=== PATIENT | female | born 1955 | race Caucasian/White ===

== ENCOUNTER → 2021-09-19 14:35 | Outpatient (BNVA) | payer MEDICARE, SELFPAY | PROVIDERS: PCP Internal Medicine; Referring Provider Internal Medicine; Visit Provider Surgery | DX: K62.89 Other specified diseases of anus and rectum (principal) | CPT/HCPCS: 99202 ==

== ENCOUNTER 2022-02-24 14:03 | Outpatient (REF) | payer MEDICARE, SELFPAY ==
--- NOTE | ~2022-02-24 | XR_ITS ---
EXAMINATION: XR HAND, RIGHT XR HAND, LEFT CLINICAL INFORMATION: Bilateral hand pain. COMPARISON: None TECHNIQUE: Each hand is imaged in 3 views. There are a total of 6 views. FINDINGS: Right: There is generalized osteopenia. No focal periarticular demineralization and no destructive process, fracture, dislocation. The ulnar variance is neutral. There is a corticated ossicle adjacent to short ulnar styloid, likely chronic secondary ossification center. Small cyst noted in distal pole carpal navicular. Wrist shows no focal joint narrowing or erosive change or chondrocalcinosis. There is mild narrowing of the MCP joints with some variable minor marginal osteophytes. No erosive change or chondrocalcinosis. There is mild narrowing PIP joints greatest fourth finger. There is spurring medial side fifth finger PIP joint. There are mild degenerative changes DIP joints. No erosions. Left: There is generalized osteopenia. No focal periarticular demineralization and no destructive process, fracture, dislocation. The ulnar variance is neutral. The carpus shows no focal joint narrowing or erosive change or chondrocalcinosis. There is mild narrowing of the first MCP joint. No erosion. There is mild narrowing fourth and fifth finger PIP joints and mild narrowing of the DIP joints. No erosive changes. XR/XR hand RT min 3V IMPRESSION: Right: -Mild narrowing MCP and PIP joints. Mild degenerative changes DIP joints. -No erosions. Left: -Mild narrowing first MCP joint. Mild narrowing fourth and fifth finger PIP joints and the DIP joints. -No erosive changes.
--- NOTE | ~2022-02-24 | XR_ITS ---
EXAMINATION: XR HAND, RIGHT XR HAND, LEFT CLINICAL INFORMATION: Bilateral hand pain. COMPARISON: None TECHNIQUE: Each hand is imaged in 3 views. There are a total of 6 views. FINDINGS: Right: There is generalized osteopenia. No focal periarticular demineralization and no destructive process, fracture, dislocation. The ulnar variance is neutral. There is a corticated ossicle adjacent to short ulnar styloid, likely chronic secondary ossification center. Small cyst noted in distal pole carpal navicular. Wrist shows no focal joint narrowing or erosive change or chondrocalcinosis. There is mild narrowing of the MCP joints with some variable minor marginal osteophytes. No erosive change or chondrocalcinosis. There is mild narrowing PIP joints greatest fourth finger. There is spurring medial side fifth finger PIP joint. There are mild degenerative changes DIP joints. No erosions. Left: There is generalized osteopenia. No focal periarticular demineralization and no destructive process, fracture, dislocation. The ulnar variance is neutral. The carpus shows no focal joint narrowing or erosive change or chondrocalcinosis. There is mild narrowing of the first MCP joint. No erosion. There is mild narrowing fourth and fifth finger PIP joints and mild narrowing of the DIP joints. No erosive changes. XR/XR hand LT min 3V IMPRESSION: Right: -Mild narrowing MCP and PIP joints. Mild degenerative changes DIP joints. -No erosions. Left: -Mild narrowing first MCP joint. Mild narrowing fourth and fifth finger PIP joints and the DIP joints. -No erosive changes.
--- NOTE | ~2022-02-24 | XR_ITS ---
EXAMINATION: XR LUMBOSACRAL SPINE CLINICAL INFORMATION: M54.50 - Low back pain, unspecified COMPARISON: CT abdomen and pelvis 02/08/2008 TECHNIQUE: Three views of the lumbosacral spine. FINDINGS: There is normal lumbar segmentation with 5 nonrib-bearing lumbar vertebrae of normal height. There is mild accentuation lumbar lordosis similar to lateral topogram 2007. There is no lumbar vertebral compression, spondylolisthesis, destructive process. There are degenerative disc changes greatest at L5-S1 with disc narrowing, vacuum disc, endplate sclerosis, and vertebral spurring. There is mild disc narrowing L4-L5 and L1-L2. Facet degeneration is suggested at lumbosacral junction. The SI joints and visualized sacrum are unremarkable. Bowel gas unremarkable. There are surgical clips right upper quadrant abdomen likely related to cholecystectomy. XR/XR lumbar spine 2-3V IMPRESSION: 1. Degenerative disc changes greatest at L5-S1. 2. No vertebral compression, spondylolisthesis, destructive process.
--- NOTE | ~2022-02-24 | XR_ITS ---
EXAMINATION: XR HIP, LEFT CLINICAL INFORMATION: M25.552 - Pain in left hip COMPARISON: None TECHNIQUE: Two views of the left hip. FINDINGS: There are prominent osteoarthritic changes left hip with joint narrowing greater superior hip joint, subchondral sclerosis, spurring, and subchondral cyst/geodes in the superior femoral head. No erosive change. Some mild buttressing is present medial side femoral neck. There is mild spurring greater trochanter. The visualized left SI joint and the pubis are unremarkable.. XR/XR hip LT min 2V IMPRESSION: Prominent osteoarthritis left hip.
[2022-02-24 15:12] LABS: MANUAL DIFF FLAG NO
[2022-02-24 15:37] LABS: Basophils Absolute Auto 0.1 X10*3/uL (0.0-0.2); Basophils Percent Auto 0.9 % (0-2); Eosinophils Absolute Auto 0.3 X10*3/uL (0.0-0.4); Eosinophils Percent Auto 4.5 % (0-4); Hematocrit 39.7 % (37.0-47.0); Hemoglobin 13.1 g/dl (12.0-16.0); Imm Gran Abs Auto 0.01 X10*3/uL (0.00-0.03); Imm Gran Pct Auto 0.2 % (0.0-0.4); Mean Corpuscular Hemoglobin 30.8 pg (27.0-33.0); Mean Corpuscular Volume 93.2 fL (80.0-98.0); Mean Platelet Volume 9.5 fL (9.4-12.3); Monocytes Absolute Auto 0.4 X10*3/uL (0.1-1.2); Monocytes Percent Auto 6.4 % (2-11); Platelet Count 293 X10*3/uL (160-400); Red Blood Count 4.26 X10*6/uL (4.20-5.50); Red Cell Distribution Width 13.2 % (11.0-16.0); White Blood Count 5.6 X10*3/uL (4.8-10.8)
[2022-02-24 16:02] LABS: Alanine Aminotransferase 39 U/L (0-31); Albumin Level 4.5 g/dL (3.5-5.0); Alkaline Phosphatase 124 U/L (39-117); Anion Gap 14 (12-20); Aspartate Amino Transferase 31 U/L (5-31); Bilirubin Total 0.6 mg/dL (0.0-1.0); Blood Urea Nitrogen 8 mg/dL (9-16); Calcium 10.1 mg/dL (8.4-10.2); Carbon Dioxide 28 mmol/L (22-29); Chloride 106 mmol/L (96-108); Cholesterol 223 mg/dL; Estimated Glomerular Filt Rate > 60; Glucose Fasting 115 mg/dL (60-99); HDL Cholesterol 86 mg/dL; LDL Cholesterol Calculated 118 mg/dl; Potassium 4.6 mmol/L (3.3-5.1); Sodium 143 mmol/L (135-145); Total Protein 6.9 g/dL (6.5-8.0); Triglycerides 96 mg/dL
== END 2022-02-24 14:04 | disposition home or self-care (01) ==
LOC: HO.XRAY 14:03
PROVIDERS: PCP Internal Medicine; Visit Provider Internal Medicine
DX: Z00.00 Encounter for general adult medical examination without abnormal findings (principal); M25.552 Pain in left hip; M54.50 Low back pain, unspecified; D64.9 Anemia, unspecified
CPT/HCPCS: 36415; 72100; 73130; 73502; 80053; 80061; 85025

== ENCOUNTER 2022-12-25 13:35 | Outpatient (AMB) | payer MEDICARE, SELFPAY ==
--- NOTE | 2022-12-25 13:37 | A.OFFPC_ITS ---
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 Required: No Accompanied by: Self / Same As Patient Allergies codeine [Codeine] Allergy (Mild, Verified 12/25/22 13:54) VOMITING Medication List - Last Reconciled 12/25/22 by Suellen Loomis MD No Known Home Meds Tobacco use date assessed: 12/25/22 Fall risk assessment: No Falls in past year Last assessed Fall Risk: 12/25/22 Dental Screening Dental Screen Date: 12/25/22 Did you have a dental visit in the last 12 months?: Yes Did you have a dental problem in the last 6 months where you did not have access to dental care?: No Was dental information given to patient?: Patient has dentist HPI HPI Comments History of Present Illness Details This is a 67-year-old female that comes for her physical exam. Mammogram was done over 2 years ago. Colonoscopy was done less than 10 years ago was normal. No chest pain or shortness of breath. Complains of chronic severe left hip pain and walks with a walker. Declines ortho referral and declines physical therapy at the moment due to personal issues. Will consider ortho referral on physical therapy in the near future. [facility] Medical History Left hand pain Left hip pain Lumbar pain Osteoarthritis involving multiple joints on both sides of body Overweight Physical exam Rectal lump Right hand pain Surgical History History of cholecystectomy History of tonsillectomy Family History (Updated 12/25/22 @ 14:00 by Suellen Loomis MD) Mother Breast cancer Glaucoma Parkinson disease Father Heart valve problem Parkinson disease Family/Other Substance use disorder Brother Substance use disorder Cirrhosis Social History Housing: House Alcohol intake: never Patient Tobacco Use Status: Never used Tobacco e-Cigarette/Vaping Use: Never Used Second Hand Smoke Exposure: No Substance Use Type: Marijuana service: No Current occupational status: retired Cognitive needs: No Hearing needs: No Vision needs: Yes Questionnaire PHQ-9 Over the last 2 weeks, how often have you been bothered by any of the following problems? 1. Little interest or pleasure in doing things: not at all 2. Feeling down, depressed, or hopeless: not at all 3. Trouble falling or staying asleep, or sleeping too much: not at all 4. Feeling tired or having little energy: not at all 5. Poor appetite or overeating: not at all 6. Feeling bad about yourself - or that you are a failure or have let yourself or your family down: not at all 7. Trouble concentrating on things, such as reading the newspaper or watching television: not at all 8. Moving or speaking so slowly that other people could have noticed. Or the opposite - being so fidgety or restless that you have been moving around a lot more than usual: not at all 9. Thoughts that you would be better off or of hurting yourself in some way: not at all Total score: 0 Depression Screening Interpretation: Negative 18384 - PHQ-9 Billing: Yes Source: Developed by Drs. Jer Slaughter, Melissa Mueller, Ash Nelson and colleagues, with an educational penny from [employer]. Thrive Questionnaire Date Thrive assessed: 12/25/22 I am a: Patient What is your living situation today?: I have a steady place to live Within the past 12 months, did the food you bought not last and you didn't have the money to get more?: Never true Within the past 12 months, did you worry whether your food would run out before you got money to buy more?: Never true Do you have trouble paying for medicines?: No Do you have trouble getting transportation to medical appointments?: No Do you have trouble paying your heating and electricity bill?: No Do you have trouble taking care of your child, family member or friend?: No Do you have trouble with day-to-day activities such as bathing, preparing meals, shopping, managing finances, etc.?: No Are you currently unemployed and looking for a job?: No Are you interested in more education?: No Please select the resources that you would like help with: None Currently or been in a relationship where the following occur: no concerns reported AUDIT C Alcohol Use Questionnaire (AUDIT-C) 1. How often do you have a drink containing alcohol?: Never Total Score: 0 Score Reviewed/Action Taken: No ABEL-7 AMB Questionnaire ABEL-7 Date ABEL - 7 assessed: 12/25/22 Feeling nervous, anxious, or on edge: 0 = Not at all Not being able to stop or control worryin = Not at all Worrying too much about different things: 0 = Not at all Trouble relaxin = Not at all Being so restless that it is hard to sit still: 0 = Not at all Becoming easily annoyed or irritable: 0 = Not at all Feeling afraid as if something awful might happen: 0 = Not at all Total ABEL-7 score (0-4 normal; 5-9 mild; 10-14 moderate; 15-21 severe): 0 Source: Developed by Drs. Jer Slaughter, Melissa Mueller, Ash Nelson and colleagues, with an educational penny from [employer]. ABEL-7 Assessment Billing ABEL-7 Assessment Tool: ABEL-7 Assessment 14191 Review of Systems Const All systems reviewed & are unremarkable except as noted in HPI and below Eyes Reports no additional complaints, Denies change in vision and Denies other visual disturbances Card Denies chest pain at rest, Denies chest pain with activity, Denies edema, Denies irregular heart rhythm, Denies claudication, Denies dyspnea, Denies dyspnea on exertion, Denies orthopnea, Denies paroxysmal nocturnal dyspnea and Denies slow heart rate Resp Denies cough, Denies dyspnea and Denies dyspnea on exertion GI Denies abdominal pain, Denies change in bowel habits, Denies excessive flatus, D enies nausea and Denies vomiting Denies urinary incontinence, Denies urinary hesitancy and Denies urinary urgency Musc Denies abnormal gait, Denies atrophy, Denies deformity and Denies limited range of motion Skin/Breast Denies bleeding lesions, Denies changing lesions and Denies rash Neuro Denies abnormal gait, Denies confusion and Denies lack of coordination Psych Denies confusion Physical exam (Primary Care) Vital Signs: Last Vital Signs BP 138/88 12/25/22 14:34 BMI result Body Mass Index 27.2 Tobacco/Smoking Status: Tobacco use Status Tobacco use date assessed 12/25/22 12/25/22 13:43 Patient Tobacco Use Status Never used Tobacco 12/25/22 13:40 e-Cigarette/Vaping Use Never Used 12/25/22 13:40 PHQ-9: PHQ-9 Score PHQ-9: Total score 0 12/25/22 14:36 Depression Screening Interpretation: Negative Thrive Assessment: Date of Thrive Assessment Date Thrive assessed 12/25/22 12/25/22 13:40 Currently or been in a relationship where the following occur: no concerns reported Const General: No confusion Orientation/consciousness: patient oriented x3 and No confusion Limitations: ambulation with cane Eyes General: appearance normal, both eyes and all related structures Eyelids: Yes eyelids normal Conjunctivae: conjunctivae normal Neck Neck: Yes normal visual inspection and Yes supple Resp Effort & Inspection: normal respiratory effort Auscultation: clear to auscultation bilaterally Cardio Jugular venous distension: no JVD Rate: regular rate Rhythm: regular rhythm Heart sounds: S1 normal heart sound present and S2 normal heart sound present GI Inspection: Yes normal to inspection Palpation (GI): Soft to palpation and nontender Auscultation: normal bowel sounds Skin General skin exam: no rashes or lesions noted Neuro General: patient oriented x3, no focal motor deficits and No confusion Extrem General: Yes full ROM Psych Appearance: grossly normal Assessment and Plan Assessment & Plan (1) Physical exam: Code(s): Z00.00 - Encounter for general adult medical examination without abnormal findings Plan: Repeat in a year Orders: Orders MM screening mammo BI Today Z12.31 - Encounter for screening mammogram for malignant neoplasm of breast Comprehensive [place]. Panel Fast Today Z00.00 - Encounter for general adult medical examination without abnormal findings Lipid Panel Today E78.5 - Hyperlipidemia, unspecified, Z00.00 - Encounter for general adult medical examination without abnormal findings Coding Level of Care Code Est Pt Prev Care >65y(83160) Diagnoses Physical exam Z00.00 Additional Codes ABEL-7 Assessment Billing - ABEL-7 Assessment Tool: ABEL-7 Assessment 81180 ([id number]) Time Spent (min) 31
[2022-12-25 13:42] VITALS: BP 140/92; BMI 27.2
[2022-12-25 14:34] VITALS: BP 138/88
== END 2022-12-25 14:48 | disposition home or self-care (01) ==
PROVIDERS: Visit Provider Internal Medicine
DX: Z00.00 Encounter for general adult medical examination without abnormal findings (principal)
CPT/HCPCS: 99397

== ENCOUNTER → 2023-11-27 13:21 | Outpatient (REF) | payer MEDICARE, SELFPAY ==
--- NOTE | 2023-11-27 13:33 | ECG_ITS ---
Test Reason : PREOP Blood Pressure : / mmHG Vent. Rate : 093 BPM Atrial Rate : 093 BPM P-R Int : 208 ms QRS Dur : 072 ms QT Int : 360 ms P-R-T Axes : 062 040 040 degrees QTc Int : 447 ms Artifact in tracing Sinus rhythm with occasional Premature ventricular complexes Possible Inferior infarct , age undetermined Abnormal ECG When compared with ECG of 08-FEB-2008 13:59, Premature ventricular complexes are now Present Borderline criteria for Inferior infarct are now Present Referred By: Suellen Loomis Electronically Signed By:SALO PASTOR
[2023-11-27 13:57] LABS: MANUAL DIFF FLAG NO
[2023-11-27 14:24] LABS: Basophils Absolute Auto 0.1 X10*3/uL (0.0-0.2); Basophils Percent Auto 0.8 % (0-2); Eosinophils Absolute Auto 0.2 X10*3/uL (0.0-0.4); Eosinophils Percent Auto 3.2 % (0-4); Hematocrit 40.7 % (37.0-47.0); Hemoglobin 13.8 g/dl (12.0-16.0); Imm Gran Abs Auto 0.02 X10*3/uL (0.00-0.03); Imm Gran Pct Auto 0.3 % (0.0-0.4); Lymphocytes Absolute Auto 1.8 X10*3/uL (1.2-4.9); Lymphocytes Percent Auto 25.5 % (20-40); Mean Corpuscular HGB Conc 33.9 g/dl (31.0-35.0); Mean Corpuscular Hemoglobin 31.4 pg (27.0-33.0); Mean Corpuscular Volume 92.5 fL (80.0-98.0); Mean Platelet Volume 9.5 fL (9.4-12.3); Monocytes Absolute Auto 0.5 X10*3/uL (0.1-1.2); Monocytes Percent Auto 7.4 % (2-11); Neutrophils Absolute Auto 4.5 x10*3/uL (2.0-8.3); Neutrophils Percent Auto 62.8 % (45-73); Platelet Count 267 X10*3/uL (160-400); Red Cell Distribution Width 13.3 % (11.0-16.0); White Blood Count 7.2 X10*3/uL (4.8-10.8)
[2023-11-27 14:47] LABS: Alanine Aminotransferase 18 U/L (0-31); Albumin Level 4.5 g/dL (3.5-5.0); Alkaline Phosphatase 98 U/L (39-117); Anion Gap 14 (12-20); Aspartate Amino Transferase 20 U/L (5-31); Bilirubin Total 0.6 mg/dL (0.0-1.0); Blood Urea Nitrogen 14 mg/dL (9-16); Calcium 10.4 mg/dL (8.4-10.2); Carbon Dioxide 24 mmol/L (22-29); Chloride 109 mmol/L (96-108); Cholesterol 224 mg/dL (<200); Estimated Glomerular Filt Rate 54; Glucose Fasting 121 mg/dL (60-99); HDL Cholesterol 87 mg/dL (>40); LDL Cholesterol Calculated 124 mg/dL (<100); Potassium 3.9 mmol/L (3.3-5.1); Sodium 143 mmol/L (135-145); Total Protein 7.2 g/dL (6.5-8.0); Triglycerides 67 mg/dL (<150)
== END ==
LOC: HO.CARD 13:21
PROVIDERS: PCP Internal Medicine; Visit Provider Internal Medicine
DX: Z01.818 Encounter for other preprocedural examination (principal); K62.89 Other specified diseases of anus and rectum; E78.5 Hyperlipidemia, unspecified
CPT/HCPCS: 36415; 80053; 80061; 85025; 93005

== ENCOUNTER → 2023-11-27 13:33 | Outpatient (BNV) | payer MEDICARE, SELFPAY | PROVIDERS: PCP Internal Medicine; Visit Provider Internal Medicine | DX: R94.31 Abnormal electrocardiogram [ECG] [EKG] (principal) | CPT/HCPCS: 93010 ==

== ENCOUNTER 2023-12-02 10:07 | Outpatient (AMB) | payer MEDICARE, SELFPAY ==
--- NOTE | 2023-12-02 10:17 | MHC.PC.OV ---
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 Roving Or Yarn Required: No Accompanied by: Self / Same As Patient Allergies codeine [Codeine] Allergy (Mild, Verified 12/02/23 10:30) VOMITING Medication List - Last Reconciled 12/02/23 by Suellen Loomis MD aspirin 81 mg PO DAILY calcium carbonate 500 mg PO BID multivitamin 1 tab PO DAILY Tobacco use date assessed: 12/02/23 Fall risk assessment: No Falls in past year Last assessed Fall Risk: 12/02/23 Dental Screening Dental Screen Date: 12/02/23 Did you have a dental visit in the last 12 months?: No Did you have a dental problem in the last 6 months where you did not have access to dental care?: No Was dental information given to patient?: Patient has dentist HPI HPI Comments History of Present Illness Details This is a 68-year-old female with left hip pain that comes today for preop evaluation for left hip arthroplasty scheduled for 12/22/2023. She denies any chest pain shortness on breath. Has elevated cholesterol and dietary changes were advised. Has elevated blood glucose and denies any polyuria, polydipsia or unintentional weight loss. Her A1c today 6%. Had an EKG in the hospital 11/25/2023 showing possible inferior infarct compare to EKG done 2007. I repeated the EKG in office and it shows prominent Q-waves in II, III and avF showing again a possible inferior infarct. I will refer her to Cardiology for this matter. She walks with a cane for gait stability. Clearance will be done by Cardiology. [facility] Medical History (Updated 12/02/23 @ 11:41 by Suellen Loomis MD) Rectal lump Right hand pain Left hand pain Osteoarthritis involving multiple joints on both sides of body Lumbar pain Left hip pain Physical exam Overweight Surgical History History of tonsillectomy History of cholecystectomy Family History (Updated 12/02/23 @ 10:39 by Suellen Loomis MD) Mother Breast cancer Glaucoma Parkinson disease Heart failure Father Heart valve problem Parkinson disease Prostate cancer Family/Other Substance use disorder Brother Substance use disorder Cirrhosis Social History Housing: House Alcohol intake: never Patient Tobacco Use Status: Never used Tobacco e-Cigarette/Vaping Use: Never Used Second Hand Smoke Exposure: No Substance Use Type: Marijuana service: No Current occupational status: retired Cognitive needs: No Hearing needs: No Vision needs: Yes Questionnaire PHQ-9 Over the last 2 weeks, how often have you been bothered by any of the following problems? 1. Little interest or pleasure in doing things: not at all 2. Feeling down, depressed, or hopeless: not at all 3. Trouble falling or staying asleep, or sleeping too much: not at all 4. Feeling tired or having little energy: not at all 5. Poor appetite or overeating: not at all 6. Feeling bad about yourself - or that you are a failure or have let yourself or your family down: not at all 7. Trouble concentrating on things, such as reading the newspaper or watching television: not at all 8. Moving or speaking so slowly that other people could have noticed. Or the opposite - being so fidgety or restless that you have been moving around a lot more than usual: not at all 9. Thoughts that you would be better off or of hurting yourself in some way: not at all Total score: 0 Depression Screening Interpretation: Negative Depression Screening Done: Yes 42286 - PHQ-9 Billing: Yes Source: Developed by Drs. Jer Slaughter, Melissa Mueller, Ash Nelson and colleagues, with an educational penny from [employer]. Thrive Questionnaire Date Thrive assessed: 12/02/23 I am a: Patient What is your living situation today?: I have a steady place to live Within the past 12 months, did the food you bought not last and you didn't have the money to get more?: Never true Within the past 12 months, did you worry whether your food would run out before you got money to buy more?: Never true Do you have trouble paying for medicines?: No Do you have trouble getting transportation to medical appointments?: No Do you have trouble paying your heating and electricity bill?: No Do you have trouble taking care of your child, family member or friend?: No Do you have trouble with day-to-day activities such as bathing, preparing meals, shopping, managing finances, etc.?: No Are you currently unemployed and looking for a job?: No Are you interested in more education?: No Please select the resources that you would like help with: None Currently or been in a relationship where the following occur: No concerns reported THRIVE Score: 0 AUDIT C Alcohol Use Questionnaire (AUDIT-C) 1. How often do you have a drink containing alcohol?: Never Total Score: 0 Score Reviewed/Action Taken: No ABEL-7 AMB Questionnaire ABEL-7 Date ABEL - 7 assessed: 12/02/23 Feeling nervous, anxious, or on edge: 0 = Not at all Not being able to stop or control worryin = Not at all Worrying too much about different things: 0 = Not at all Trouble relaxin = Not at all Being so restless that it is hard to sit still: 0 = Not at all Becoming easily annoyed or irritable: 0 = Not at all Feeling afraid as if something awful might happen: 0 = Not at all Total ABEL-7 score (0-4 normal; 5-9 mild; 10-14 moderate; 15-21 severe): 0 Source: Developed by Drs. Jer Slaughter, Melissa Mueller, Ash Nelson and colleagues, with an educational penny from [employer]. ABEL-7 Assessment Billing ABEL-7 Assessment Tool: ABEL-7 Assessment 65234 Review of Systems Const All systems reviewed & are unremarkable except as noted in HPI and below Card Denies chest pain at rest, Denies chest pain with activity, Denies edema, Denies irregular heart rhythm, Denies claudication, Denies dyspnea, Denies dyspnea on exertion, Denies orthopnea, Denies paroxysmal nocturnal dyspnea and Denies slow heart rate Resp Denies cough, Denies dyspnea and Denies dyspnea on exertion GI Denies abdominal pain, Denies change in bowel habits, Denies excessive flatus, Denies nausea and Denies vomiting Musc Reports arthralgias Neuro Denies behavioral changes and Denies lack of coordination Psych Denies behavioral changes Physical exam (Primary Care) Vital Signs: Last Vital Signs Pulse 90 12/02/23 10:19 BP 128/80 12/02/23 10:19 Pulse Ox 98 12/02/23 10:19 Oxygen Delivery Method Room Air 12/02/23 10:19 BMI result Body Mass Index 27.2 Tobacco/Smoking Status: Tobacco use Status Tobacco use date assessed 12/02/23 12/02/23 10:23 Patient Tobacco Use Status Never used Tobacco 12/02/23 10:18 e-Cigarette/Vaping Use Never Used 12/02/23 10:18 PHQ-9: PHQ-9 Score PHQ-9: Total score 0 12/02/23 10:35 Depression Screening Interpretation: Negative Thrive Assessment: Date of Thrive Assessment Date Thrive assessed 12/02/23 12/02/23 10:24 Currently or been in a relationship where the following occur: No concerns reported Const General: cooperative Limitations: ambulation with cane Resp Effort & Inspection: normal respiratory effort Auscultation: clear to auscultation bilaterally Cardio Jugular venous distension: no JVD Rate: regular rate Rhythm: regular rhythm Heart sounds: S1 normal heart sound present and S2 normal heart sound present Extrem General: Yes full ROM Office Procedures EKG Details: NSR. Deep Q waves in II, III and avF with possible inferior infarct. [id number], Complete Results AMB Hemoglobin A1c AMB Hemoglobin A1c 6.0 % Last Edit by MEDHAT Bell on 12/02/23 10:40 Results Reviewed Results Reviewed: Laboratory Last Values Hgb A1c (Clinic) 6.0 % (4.0-6.0) 12/02/23 10:35 Assessment and Plan Assessment & Plan (1) Pre-op evaluation: Code(s): Z01.818 - Encounter for other preprocedural examination Plan: Medical clearance will be done by Cardiology due to her abnormal EKG. (2) Abnormal EKG: Code(s): R94.31 - Abnormal electrocardiogram [ECG] [EKG] Plan: Referred to cardiology. Orders: Orders AMB Hemoglobin A1c Today R73.02 - Impaired glucose tolerance (oral) Coding Level of Care Code Est Pt Level 3 (59944) Complex EM visit Add On G2211 Diagnoses Pre-op evaluation Z01.818 Abnormal EKG R94.31 CPT Codes EKG - CPT: 88914-[id number], Complete ([id number]) Additional Codes ABEL-7 Assessment Billing - ABEL-7 Assessment Tool: ABEL-7 Assessment 80639 ([id number]) Time Spent (min) 22
[2023-12-02 10:19] VITALS: BP 128/80; PULSE 90; O2SAT 98; BMI 27.2
== END 2023-12-02 11:12 | disposition home or self-care (01) ==
PROVIDERS: PCP Internal Medicine; Visit Provider Internal Medicine
DX: R94.31 Abnormal electrocardiogram [ECG] [EKG] (principal); R73.02 Impaired glucose tolerance (oral); Z01.818 Encounter for other preprocedural examination
CPT/HCPCS: 83036; 93000; 99213; G2211

== ENCOUNTER 2023-12-03 10:01 | Outpatient (AMB) | payer MEDICARE, SELFPAY ==
--- NOTE | 2023-12-03 10:02 | A.OFFVIS_ITS ---
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 There was a question of abnormal EKG done in primary care physician's office. Patient herself does not have any known coronary disease myocardial infarction or cardiomyopathy or any other major cardiac concerns. Several decades ago, she was apparently told to have an irregular heart rate but otherwise, nothing definitive. Within limits of her activity, she does not have any symptoms like chest pains or shortness of breath or in fact any cardiac symptoms at all. She needs to go for hip surgery and that is scheduled for this month. No major comorbidities like diabetes or hypertension [facility] Medical History Rectal lump Right hand pain Left hand pain Osteoarthritis involving multiple joints on both sides of body Lumbar pain Left hip pain Physical exam Overweight Surgical History History of tonsillectomy History of cholecystectomy Family History Mother Breast cancer Glaucoma Parkinson disease Heart failure Father Heart valve problem Parkinson disease Prostate cancer Family/Other Substance use disorder Brother Substance use disorder Cirrhosis Social History Housing: House Alcohol intake: never Patient Tobacco Use Status: Never used Tobacco e-Cigarette/Vaping Use: Never Used Second Hand Smoke Exposure: No Substance Use Type: Marijuana service: No Current occupational status: retired Cognitive needs: No Hearing needs: No Vision needs: Yes Review of Systems Const Denies chills, Denies fatigue, Denies fever(s), Denies weight gain and Denies weight loss ENT Denies dizziness Card Denies chest pain, Denies leg edema, Denies lightheadedness, Denies palpitations, Denies dyspnea on exertion, Denies orthopnea and Denies other Resp Denies cough and Denies dyspnea on exertion GI Denies hematochezia and Denies change in stool character Musc Denies abnormal gait, Denies muscle weakness, Denies numbness, Denies radiating pain into limb and Denies tingling Neuro Denies abnormal gait, Denies dizziness, Denies numbness and Denies tingling Endo Denies fatigue and Denies palpitations Physical Exam Vital Signs: Last Vital Signs Pulse 86 12/03/23 10:06 BP 116/70 12/03/23 10:06 BMI result Body Mass Index 27.5 Const General: comfortable and no acute distress Orientation/consciousness: patient oriented x3 HEENT Other: Unremarkable Head: Yes normal to inspection Neck Neck: Yes normal visual inspection Chest Chest palpation & inspection: normal inspection of the chest Resp Auscultation: clear to auscultation bilaterally Cardio Palpation: normal PMI Heart sounds: S1 normal heart sound present, S2 normal heart sound present, no gallops, no murmurs and no rubs GI Palpation (GI): Soft to palpation Back/Spine/Pelvis Other: unremarkable Skin General skin exam: no rashes or lesions noted Neuro General: patient oriented x3 Extrem General: Yes normal to inspection Psych Mental Status: mental status grossly normal Office Procedures EKG Details: EKG with underlying sinus rhythm at 86/Min; [place] prolongation to 216 millisecond; [place] [id number], Complete Assessment & Plan Assessment & Plan (1) Preoperative cardiovascular examination: Code(s): Z01.810 - Encounter for preprocedural cardiovascular examination Category: Medical Plan In the recent EKG, underlying rhythm is sinus with an isolated PVC. There was a question of prior inferior infarct but could also be from body habitus and lead placement. In the repeat EKG from today, inferior lead does not show any clear evidence of infarct. Hence most likely all because of lead placement. Clinically, she has got no cardiac symptoms and does not have any major risk factors either. May proceed with hip surgery as planned. Low cardiac risk. Coding Level of Care Code New Pt Level 3 (99838) Diagnoses Preoperative cardiovascular examination Z01.810 CPT Codes EKG - CPT: 92610-[id number], Complete ([id number])
[2023-12-03 10:06] VITALS: BP 116/70; PULSE 86; BMI 27.5
== END 2023-12-03 10:25 | disposition home or self-care (01) ==
PROVIDERS: PCP Internal Medicine; Visit Provider Internal Medicine
DX: I44.0 Atrioventricular block, first degree (principal); I49.3 Ventricular premature depolarization; Z01.810 Encounter for preprocedural cardiovascular examination
CPT/HCPCS: 93010; 99213

== ENCOUNTER → 2023-12-03 10:01 | Outpatient (BNVA) | payer MEDICARE, SELFPAY | PROVIDERS: PCP Internal Medicine; Visit Provider Internal Medicine | DX: Z01.810 Encounter for preprocedural cardiovascular examination (principal) | CPT/HCPCS: 93005; 99212 ==

== ENCOUNTER 2024-01-07 12:58 | Outpatient (AMB) | payer MEDICARE, SELFPAY ==
--- NOTE | 2024-01-07 13:00 | A.OFFPC_ITS ---
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: No Accompanied by: Self / Same As Patient Allergies codeine [Codeine] Allergy (Mild, Verified 01/07/24 13:17) VOMITING Medication List - Last Reconciled 01/07/24 by Suellen Loomis MD acetaminophen (Pain Relief Extra Strength (acetaminophen)) 1,000 mg PO Q8H aspirin 81 mg PO DAILY calcium carbonate 500 mg PO BID multivitamin 1 tab PO DAILY pantoprazole 40 mg PO DAILY sennosides-docusate sodium 8.6-50 mg (Senexon-S) 1 tab PO BID Tobacco use date assessed: 12/02/23 Fall risk assessment: No Falls in past year Last assessed Fall Risk: 01/07/24 Dental Screening Dental Screen Date: 12/02/23 HPI HPI Comments History of Present Illness Details This is a 68-year-old female that comes for her physical exam. Mammogram as per patient was done last year but I do not have the results. Colonoscopy done less than 5 years ago was normal as per patient and was done at [place]. Walks with a cane for gait stability. No chest pain or shortness on breath. Labs were discussed. She declines pneumonia vaccine today but she will definitely wants to have it soon. She is just recovering from hip replacement and has not had her postop appointment yet. [facility] Medical History Rectal lump Right hand pain Left hand pain Osteoarthritis involving multiple joints on both sides of body Lumbar pain Left hip pain Physical exam Overweight Surgical History History of left hip replacement History of tonsillectomy History of cholecystectomy Family History Mother Breast cancer Glaucoma Parkinson disease Heart failure Father Heart valve problem Parkinson disease Prostate cancer Family/Other Substance use disorder Brother Substance use disorder Cirrhosis Social History Housing: House Alcohol intake: never Patient Tobacco Use Status: Never used Tobacco e-Cigarette/Vaping Use: Never Used Second Hand Smoke Exposure: No Substance Use Type: Marijuana service: No Current occupational status: retired Cognitive needs: No Hearing needs: No Vision needs: Yes Questionnaire PHQ-9 Over the last 2 weeks, how often have you been bothered by any of the following problems? 1. Little interest or pleasure in doing things: not at all 2. Feeling down, depressed, or hopeless: not at all 3. Trouble falling or staying asleep, or sleeping too much: not at all 4. Feeling tired or having little energy: not at all 5. Poor appetite or overeating: not at all 6. Feeling bad about yourself - or that you are a failure or have let yourself or your family down: not at all 7. Trouble concentrating on things, such as reading the newspaper or watching television: not at all 8. Moving or speaking so slowly that other people could have noticed. Or the opposite - being so fidgety or restless that you have been moving around a lot more than usual: not at all 9. Thoughts that you would be better off or of hurting yourself in some way: not at all Total score: 0 Depression Screening Interpretation: Negative Depression Screening Done: Yes [id number] - PHQ-9 Billing: Yes Source: Developed by Drs. Jer Slaughter, Melissa Mueller, Ash Nelson and colleagues, with an educational penny from [employer]. Thrive Questionnaire Date Thrive assessed: 01/07/24 I am a: Patient What is your living situation today?: I have a steady place to live Within the past 12 months, did the food you bought not last and you didn't have the money to get more?: Never true Within the past 12 months, did you worry whether your food would run out before you got money to buy more?: Never true Do you have trouble paying for medicines?: No Do you have trouble getting transportation to medical appointments?: No Do you have trouble paying your heating and electricity bill?: No Do you have trouble taking care of your child, family member or friend?: No Do you have trouble with day-to-day activities such as bathing, preparing meals, shopping, managing finances, etc.?: No Are you currently unemployed and looking for a job?: No Are you interested in more education?: No Please select the resources that you would like help with: None Currently or been in a relationship where the following occur: No concerns reported THRIVE Score: 0 AUDIT C Alcohol Use Questionnaire (AUDIT-C) 1. How often do you have a drink containing alcohol?: Never Total Score: 0 Score Reviewed/Action Taken: No ABEL-7 AMB Questionnaire ABEL-7 Date ABEL - 7 assessed: 01/07/24 Feeling nervous, anxious, or on edge: 0 = Not at all Not being able to stop or control worryin = Not at all Worrying too much about different things: 0 = Not at all Trouble relaxin = Not at all Being so restless that it is hard to sit still: 0 = Not at all Becoming easily annoyed or irritable: 0 = Not at all Feeling afraid as if something awful might happen: 0 = Not at all Total ABEL-7 score (0-4 normal; 5-9 mild; 10-14 moderate; 15-21 severe): 0 Source: Developed by Drs. Jer Slaughter, Melissa Mueller, Ash Nelson and colleagues, with an educational penny from [employer]. Review of Systems Const All systems reviewed & are unremarkable except as noted in HPI and below Card Denies chest pain at rest, Denies chest pain with activity, Denies edema, Denies irregular heart rhythm, Denies claudication, Denies dyspnea, Denies dyspnea on exertion, Denies orthopnea, Denies paroxysmal nocturnal dyspnea and Denies slow heart rate Resp Denies cough, Denies dyspnea and Denies dyspnea on exertion GI Denies abdominal pain, Denies change in bowel habits, Denies excessive flatus, Denies nausea and Denies vomiting Denies urinary incontinence, Denies urinary hesitancy and Denies urinary urgency Musc Denies abnormal gait, Denies atrophy, Denies deformity and Denies limited range of motion Skin/Breast Denies bleeding lesions, Denies changing lesions and Denies rash Neuro Denies abnormal gait, Denies behavioral changes and Denies lack of coordination Psych Denies behavioral changes Physical exam (Primary Care) Vital Signs: Last Vital Signs BP 128/82 01/07/24 13:01 BMI result Body Mass Index 28.9 Tobacco/Smoking Status: Tobacco use Status Tobacco use date assessed 12/02/23 01/07/24 13:09 Patient Tobacco Use Status Never used Tobacco 01/07/24 13:09 e-Cigarette/Vaping Use Never Used 01/07/24 13:09 PHQ-9: PHQ-9 Score PHQ-9: Total score 0 01/07/24 13:50 Depression Screening Interpretation: Negative Thrive Assessment: Date of Thrive Assessment Date Thrive assessed 01/07/24 01/07/24 13:09 Currently or been in a relationship where the following occur: No concerns reported Const Limitations: ambulation with cane Resp Effort & Inspection: normal respiratory effort Auscultation: clear to auscultation bilaterally Cardio Jugular venous distension: no JVD Rate: regular rate Rhythm: regular rhythm Heart sounds: S1 normal heart sound present and S2 normal heart sound present Extrem General: Yes full ROM Psych Appearance: grossly normal Assessment and Plan Assessment & Plan (1) Physical exam: Code(s): Z00.00 - Encounter for general adult medical examination without abnormal findings Plan: Repeat in a year. Orders: Orders XR DEXA axial skeleton Today N95.9 - Unspecified menopausal and perimenopausal disorder Lipid Panel 6 Months E78.5 - Hyperlipidemia, unspecified Comprehensive [place]. Panel Fast 6 Months Z00.00 - Encounter for general adult medical examination without abnormal findings ECG 12 lead EKG 6 Months R94.31 - Abnormal electrocardiogram [ECG] [EKG] Review Patient declined Pneumococcal Vaccine: 01/07/24 Coding Level of Care Code Est Pt Prev Care >65y(39727) Diagnoses Physical exam Z00.00 Time Spent (min) 30
[2024-01-07 13:01] VITALS: BP 128/82; BMI 28.9
== END 2024-01-07 13:47 | disposition home or self-care (01) ==
PROVIDERS: PCP Internal Medicine; Visit Provider Internal Medicine
DX: Z00.00 Encounter for general adult medical examination without abnormal findings (principal)
CPT/HCPCS: 99397

== ENCOUNTER 2024-10-15 15:28 | Emergency (ER) | payer MEDICARE, SELFPAY ==
--- NOTE | ~2024-10-15 | XR_ITS ---
CLINICAL HISTORY: pain to metacarpals after fall Radiographs of the right hand, 3 views, 4 images Comparison: None Findings: No acute fracture or dislocation. 8 mm well corticated ossific fragment distal to the styloid process of the ulna, chronic. [id number] degenerative change. Bone mineralization is decreased. Soft tissue swelling. Impression: No acute fracture. This document has been electronically signed by: Maggie Thornton MD on 10/15/2024 16:47:04
[2024-10-15 15:32] VITALS: BP 157/77; PULSE 80; RESP 18; TEMP 36.1; O2SAT 96; BMI 30.7
--- NOTE | 2024-10-15 15:32 | ED_ITS ---
HPI - General Adult General Chief complaint: Extremity Injury, Upper Stated complaint: possible broken right hand from fall with dog Time Seen by Provider: 10/15/24 15:54 Source: patient and RN notes reviewed Mode of arrival: ambulatory Limitations: no limitations History of Present Illness ED Provider: Allyson Reed PA-C [facility] narrative: This is a 69-year-old female, with a past medical history of osteoarthritis, who presents emergency department with concerns of right hand pain status post mechanical fall which occurred yesterday. Patient states that her sandal broke while walking a dog on a leash and she ultimately fell on her right hand. She does report she struck her head, no loss of consciousness. She is not on anticoagulation however she is on aspirin daily. She is right-hand dominant. No numbness or tingling into her hand. No wrist pain. She felt well prior to the fall. Denies any chest pain, shortness for breath, changes in vision, headache, abdominal pain, nausea, vomiting or diarrhea. No other complaints or concerns at this time. MD complaint: hand pain Onset (ago): day(s) Location: upper extremity Radiation: non-radiation Severity: moderate Quality: aching Pain Consistency: constant Relieving factors: none Exacerbating factors: cold therapy Associated symptoms: denies other symptoms Treatments prior to arrival: none Related Data Home Medications ?Medication ?Instructions ?Recorded ?Confirmed aspirin 81 mg tablet,delayed 81 mg PO DAILY 12/02/23 01/07/24 release calcium carbonate 500 mg PO BID 12/02/23 01/07/24 multivitamin 1 tab PO DAILY 12/02/23 01/07/24 acetaminophen 500 mg tablet (Pain 1,000 mg PO Q8H 01/07/24 01/07/24 Relief Extra Strength (acetaminophen)) pantoprazole 40 mg tablet,delayed 40 mg PO DAILY 01/07/24 01/07/24 release sennosides 8.6 mg-docusate sodium 1 tab PO BID 01/07/24 01/07/24 50 mg tablet (Senexon-S) Allergies Allergy/AdvReac Type Severity Reaction Status Date / Time codeine [Codeine] Allergy Mild VOMITING Verified 10/15/24 15:33 Review of Systems Review of Systems: Yes all other systems are reviewed and are negative Constitutional: Constitutional: Reports as per [facility] Past Medical History Medical History Rectal lump Right hand pain Left hand pain Osteoarthritis involving multiple joints on both sides of body Lumbar pain Left hip pain Physical exam Overweight Surgical History History of left hip replacement History of tonsillectomy History of cholecystectomy Family History Family History Mother Breast cancer Glaucoma Parkinson disease Heart failure Father Heart valve problem Parkinson disease Prostate cancer Family/Other Substance use disorder Brother Substance use disorder Cirrhosis Social History Social History Housing: House Alcohol intake: never Patient Tobacco Use Status: Never used Tobacco Smoked in Last 30 Days: No e-Cigarette/Vaping Use: Never Used Second Hand Smoke Exposure: No Use of substances other than those prescribed or required for medical reasons: No Substance Use Type: Marijuana Advance Directives: No Advance Directives Information Provided: No service: No Current occupational status: retired Cognitive needs: No Hearing needs: No Vision needs: Yes Physical Exam ED Vital Signs: Vital Signs - 24 hr 10/15/24 15:32 10/15/24 16:33 10/15/24 17:45 Temperature 96.9 F 97.9 F Pulse Rate 80 89 89 Respiratory Rate 18 18 18 Blood Pressure 157/77 H 145/77 H Pulse Oximetry 96 95 95 Oxygen Delivery Method Room Air Room Air Room Air BMI result Body Mass Index 30.7 Const General: cooperative, comfortable and no acute distress Orientation/consciousness: patient oriented x3 Limitations: no limitations HENMT Other: right temporal region, there is a 0.5 mm superficial abrasion, dressed with hydrocolloid dressing, no surrounding erythema, drainage, or warmth. Head: Yes normal to inspection, Yes normocephalic, Yes atraumatic, No Malone's sign, No hematoma and No raccoon eyes Ears: hearing grossly normal bilaterally General nose exam: Normal external nose present Face and sinus: Yes normal facial exam Mouth: Normal oral and palatal mucosa present, oropharynx normal and moist mucous membranes Throat: Yes posterior oropharynx normal Eyes General: appearance normal, both eyes and all related structures Eyelids: Yes eyelids normal Conjunctivae: conjunctivae normal Sclerae: sclerae normal Pupils: Equal, round and reactive pupils present EOM: EOMs intact bilaterally Neck Other: no C-spine tenderness on examination. Neck: Yes normal visual inspection, Yes full ROM and Yes no lymphadenopathy Lymphatic: no lymphadenopathy noted Chest Chest palpation & inspection: normal inspection of the chest Resp Effort & Inspection: normal respiratory effort and able to speak in complete sentences Auscultation: clear to auscultation bilaterally, no crackles, no rales, no rhonchi and no wheezes Cardio Rate: regular rate Rhythm: regular rhythm Heart sounds: S1 normal heart sound present and S2 normal heart sound present GI Inspection: Yes normal to inspection Skin General skin exam: no rashes or lesions noted Trauma: no lacerations or abrasions Wounds: no wounds Neuro General: patient oriented x3 and moves all extremities Cranial nerves: Yes Equal, round and reactive pupils present Extrem Other: Right hand, with moderate edema, and tenderness palpation along the dorsum, specifically over the 3rd 4th and 5th metacarpal bones, no overlying skin breakdown, or lacerations. On the palmar aspect, she has ecchymosis seen, no palpable deformities. Distal radius and ulna nontender, full ROM of the wrist without difficulty. Able to make a fist however with pain appreciated. Strong radial pulse. General: Yes normal to inspection Left upper extremity: normal to inspection Right lower extremity: normal to inspection Left lower extremity: normal to inspection Course Course Course Narrative: This is a rapid medical exam performed by Lewis Ontiveros NP: Additional HPI, ROS, PE not included below will be deferred to primary provider. Patient is a 69-year-old right hand dominant female presenting with complaint of right hand pain after a fall last night. States her dog pulled her over, and her sandal broke at the same time, landed on hand. Reports positive head strike, denies LOC. Daily ASA. Plan: x-ray, CT head Procedures Orthopedic Splinting/Casting Injury #1: Side: right Upper Extremity Injury Location: hand Upper Extremity Immobilizer: volar splint Medical Decision Making Medical Decision Making MDM Narrative: This is a 69-year-old female who presents emergency department with concerns of right hand pain status post mechanical fall which occurred yesterday. On arrival, blood pressure mildly elevated 157/77. she is speaking in full sentences under no acute distress. Mechanical fall occurred yesterday while she was walking her dog. She does report scraping the right side of her face on the pavement, no LOC. She is not on anticoagulation. She is alert and oriented, no focal deficits on examination. Discussed with patient that given her age, it best if we could get a head CT and neck CT To rule out any acute process however patient declining. Only wants to have hand evaluated. Given that she is neurologically intact, we will closely observe. x-ray of the right hand was ordered, CT head and neck canceled. >> 1650 - X-rays of the right hand revealed no acute bony abnormalities. I reviewed the images, she did have subtle lucency seen on the 4th metacarpal bone, given that she has exquisite tenderness throughout the dorsum of the hand, I am going to treat conservatively and splint patient in a volar splint. She will follow-up with orthopedics outpatient. Given strict return precautions. Also encouraged to keep hand elevated to prevent worsening edema. Also advised to take ibuprofen and Tylenol, she declines wanting a prescription at this time. I also stressed the importance that if she develops any headaches, dizziness, blurred vision, weakness, to immediately seek emergent care given head strike. Again she has no neurologic deficits on examination, and patient declining CT scan at today's visit. Patient stable for discharge. Differential Diagnosis Differential Diagnoses: The differential diagnosis associated with the presentation includes Fracture, contusion, sprain, strain Admission/Observation Consideration of admission/observation: Escalation of care including admission/observation considered Radiology Impression Discussion of test interpretation with radiology: I have reviewed the radiologist's reading. Radiologist Impression: Findings: No acute fracture or dislocation. 8 mm well corticated ossific fragment distal to the styloid process of the ulna, chronic. [id number] degenerative change. Bone mineralization is decreased. Soft tissue swelling. Impression: No acute fracture. This document has been electronically signed by: Maggie Thornton MD on 10/15/2024 16:47:04 Dictated By: Maggie Perez MD Discharge Plan Discharge Clinical Impression: Contusion of right hand Patient Disposition: Home, Self-Care Instructions: Contusion in Adults (ED) Additional Instructions: You were seen in the emergency department due to right hand pain. Your x-rays do not show any broken bones however given the amount of swelling as well as pain, we are treating this is a possible fracture not seen on x-ray. We placed you in a splint. Please do not get splint wet, do not remove splint until you follow-up with Orthopedics. Please call Orthopedics on Thursday for follow-up. Alternate between ibuprofen and or Tylenol as needed for pain and symptoms. Keeping your arm elevated will help decrease inflammation in your right hand. If any new or worsening symptoms occur including but not limited to decreased sensation in the tips of your fingers, changes of color in your fingers please return for re-evaluation. Prescriptions: No Action acetaminophen [Pain Relief ES (acetaminophen)] 500 mg tablet 1,000 mg PO Q8H sennosides-docusate sodium [Senexon-S] 8.6-50 mg tablet 1 tab PO BID pantoprazole 40 mg tablet,delayed release (DR/EC) 40 mg PO DAILY aspirin 81 mg tablet,delayed release (DR/EC) 81 mg PO DAILY calcium carbonate 500 mg calcium (1,250 mg) tablet 500 mg PO BID multivitamin Tablet 1 tab PO DAILY [place] [facility] [facility] [place]Provider Group] Interventions: ED Discharge Assessment Last Done: 10/15/24 17:45 Discharge Date/Time: 10/15/24 17:47 Print Language: Bahraini
[2024-10-15 16:33] VITALS: PULSE 89; RESP 18; O2SAT 95
[2024-10-15 17:45] VITALS: BP 145/77; PULSE 89; RESP 18; TEMP 36.6; O2SAT 95
== END 2024-10-15 17:47 | disposition home or self-care (01) ==
PROVIDERS: Emergency Provider Emergency Medicine; PCP Internal Medicine
DX: S60.221A Contusion of right hand, initial encounter (principal); W01.0XXA Fall on same level from slipping, tripping and stumbling without subsequent striking against object, initial encounter; Y93.K1 Activity, walking an animal; Y92.414 Local residential or business street as the place of occurrence of the external cause; Y99.9 Unspecified external cause status
CPT/HCPCS: 29125; 73130; 99284

== ENCOUNTER → 2024-10-15 15:34 | Outpatient (BNV) | payer MEDICARE, SELFPAY | PROVIDERS: Emergency Provider Emergency Medicine; PCP Internal Medicine; Visit Provider Radiology Diagnostic Radiology | DX: M79.641 Pain in right hand (principal) | CPT/HCPCS: 73130 ==

== ENCOUNTER 2024-10-19 12:56 | Outpatient (AMB) | payer MEDICARE, SELFPAY ==
[2024-10-19 13:02] VITALS: BMI 30.6
--- NOTE | 2024-10-19 13:02 | A.OFFVIS_ITS ---
Vital Signs 10/19/24 13:02 Height 5 ft 9 in Weight 207 lb BMI 30.6 Intake Visit Reasons: ER f/u- Rt hand injury DOI 10/14/24 Intake Note: sally is a right hand dominant 69 year old female who presents today for an ER follow up of the right hand DOI 10/14/24. Patient explains she fell down and was dragged while walking her dog. Seen in [facility] [place] [facility] ED following day where xrays were taken, she was splinted and referred to orthopedic if pain continues. Patients states she is having little to no pain however she expresses she is having achiness and soreness. She was prescribed oxycodone for another issue, states she took it and had no relieve. Allergies codeine (Codeine) Allergy (Mild, Verified 10/19/24 13:13) VOMITING HPI HPI ER f/u- Rt hand injury DOI 10/14/24: Details: Sally is a 69 year old right hand dominant woman who presents for right hand pain, S/P fall, DOi: 10/14/24. She was seen in the ED and placed in a volar splint due to point tenderness. She complains today of pain in her hand, which she describes as an ache or soreness. She says her pain has improved since her DOI. [facility] Medical History Rectal lump Right hand pain Left hand pain Osteoarthritis involving multiple joints on both sides of body Lumbar pain Left hip pain Physical exam Overweight Surgical History History of left hip replacement History of tonsillectomy History of cholecystectomy Family History Mother Breast cancer Glaucoma Parkinson disease Heart failure Father Heart valve problem Parkinson disease Prostate cancer Family/Other Substance use disorder Brother Substance use disorder Cirrhosis Social History Housing: House Alcohol intake: never Patient Tobacco Use Status: Never used Tobacco e-Cigarette/Vaping Use: Never Used Second Hand Smoke Exposure: No Substance Use Type: Marijuana service: No Current occupational status: retired Cognitive needs: No Hearing needs: No Vision needs: Yes Review of Systems Const All systems reviewed & are unremarkable except as noted in HPI and below Physical Exam Vital Signs: BMI result Body Mass Index 30.6 Const General: cooperative, healthy appearing and no acute distress Orientation/consciousness: patient oriented x3 HEENT Head: Yes normocephalic and Yes atraumatic Eyes EOM: EOMs intact bilaterally Resp Effort & Inspection: normal respiratory effort and able to speak in complete sentences Cardio Jugular venous distension: no JVD Skin General skin exam: turgor normal Rashes: no rashes Neuro General: patient oriented x3 Extrem Other: Evaluation of Right Upper Extremity: The patient is alert, oriented, and in no acute distress Neuro: Median, Ulnar, Radial nerves motor and sensory intact and sensation is normal to the tips of all digits Vascular: Cap refill brisk ROM: She is unable to make a full fist, secondary to pain. Likely also some stiffness after being splinted with her fingers in extension Smooth & painless wrist ROM Skin: No lacerations or abrasions or evidence of open fracture General: No Erythema or evidence of infection. Palmar ecchymosis extending into middle & ring fingers Notable swelling of the hand and fingers Most TTP along the length of the 4th metacarpal, along the shaft & across the MCP joint Also TTP 3rd metacarpal head NTTP at the distal radius DRUJ and distal ulna. The DRUJ was stable. Not particularly table over the radiocarpal or ulnocarpal joints. The digits were not particularly tender other than as we approached the 3rd MCP joint. No tenderness in the thumb, or over the 2nd or 5th metacarpals. No rotational malalignment. Radiographs: 3 views of the right hand from 10/15/24 were reviewed by me today in clinic. On the oblique view there is a faint radiolucent line across the shaft of the 4th metacarpal which could indicate a non-displaced fracture. This is not visible on the lateral view There are arthritic changes in the MCP & IP joints of multiple fingers. 3 views of the right hand were taken and viewed by me today in clinic. They show a minimally displaced spiral oblique 4th metacarpal shaft fracture Psych Appearance: grossly normal Affect: normal affect Attitude: cooperative Office Procedures AMB Fracture Care Details: Fracture care [id number] Fracture Billing Code: Fracture Billing Code Assessment & Plan Assessment & Plan (1) Fracture of shaft of fourth metacarpal bone of right hand: Code(s): S62.324A - Displaced fracture of shaft of fourth metacarpal bone, right hand, initial encounter for closed fracture Category: Medical Plan Assessment & Plan: 1. Right 4th metacarpal shaft fracture, spiral oblique Minimally displaced From a fall walking her dog, DOI: 10/15/24 I educated her about this condition I discussed operative and non-operative treatment options I recommend we manage this conservatively, and she is in agreement She was fitted for a velcro wrist splint, to be worn like a cast for the next 4 weeks, and her middle & ring fingers were Gustavo-taped until her next appointment. I discussed activity modifications, she is to lift nothing heavier than a cellphone for the next 4 weeks. She is also to avoid any heavy impact activities or falls. She will perform gentle ROM exercises at home, in her splint She will follow up in 4 weeks, with X-rays, 3V R hand, OOP Please note that greater than 60 minutes was spent with this patient going over the history, evaluating the patient and radiographs, formulating possible treatment options, discussing them with the patient, and documenting the visit. Scribed for Nguyen Lerma MD by Dima South, family practice medical doctor, on 10/19/24 at 1:25 PM, EST. Coding Level of Care Code New Pt Level 4 (56736) Diagnoses Fracture of shaft of fourth metacarpal bone of right hand S62.324A CPT Codes Fracture Care - Fracture Billing Code: Fracture Billing Code ([id number])
== END 2024-10-19 14:40 | disposition home or self-care (01) ==
LOC: HO.HOS 12:57
PROVIDERS: PCP Internal Medicine; Visit Provider Orthopaedic Surgery
DX: S62.324A Displaced fracture of shaft of fourth metacarpal bone, right hand, initial encounter for closed fracture (principal)
CPT/HCPCS: 26600; 99204

== ENCOUNTER 2024-10-19 13:45 | Outpatient (REF) | payer MEDICARE, SELFPAY ==
--- NOTE | ~2024-10-19 | XR_ITS ---
EXAMINATION: XR HAND, RIGHT CLINICAL INFORMATION: M79.642 - Pain in right hand , fourth metacarpal COMPARISON: October 15, 2024 and February 24, 2022 TECHNIQUE: PA, lateral, and oblique views of the right hand. FINDINGS: On an oblique view, there is a step-off of the cortex along the dorsal junction of the middle third proximal third diaphysis of the fourth metacarpal. There is mild narrowing of PIP joints and marginal osteophytes. There is [id number] joint space narrowing involving metacarpal phalangeal joints of the second, third, and fifth digits 3 There are marginal osteophytes well, largest along the radial aspect of the fifth metacarpal head. There is faint amorphous calcific density in the soft tissues interposed between the knee and the distal radioulnar joint. Chronic corticated ossification is present in the soft tissues distal to the ulnar styloid, also present in 2021. XR/XR hand RT min 3V IMPRESSION: There is a step-off involving the dorsal cortex of the fourth metacarpal at the junction of middle third proximal third diaphysis, suspected remote fracture. Correlate for focal pain. 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 Chronic nonunion of ulnar styloid fracture. Electronically signed by: David Landa MD 10/19/2024 02:23 PM EDT
== END 2024-10-19 13:46 | disposition home or self-care (01) ==
LOC: HO.XRAY 13:45
PROVIDERS: PCP Internal Medicine; Visit Provider Orthopaedic Surgery
DX: S62.324A Displaced fracture of shaft of fourth metacarpal bone, right hand, initial encounter for closed fracture (principal)
CPT/HCPCS: 26600; 73130; 99202

== ENCOUNTER → 2024-10-19 13:50 | Outpatient (BNV) | payer MEDICARE, SELFPAY | PROVIDERS: PCP Internal Medicine; Visit Provider Radiology Diagnostic Radiology | DX: M19.041 Primary osteoarthritis, right hand (principal); M79.641 Pain in right hand | CPT/HCPCS: 73130 ==

== ENCOUNTER 2024-10-20 09:04 | Outpatient (REF) | payer MEDICARE, SELFPAY ==
--- OUTSIDE RECORDS SUMMARY | 2024-10-21 09:16 | XMS_ITS | Data Portability ---
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 Patient comes in complaining of left hip pain. She has been dealing with the hip pain for years. She does occasional Aleve. She walks with a cane. This patient is experiencing left hip pain for a period lasting greater than the last three months, which is severe (VAS score greater than or equal to 6 on a 0-10 scale) in intensity and the restriction of function (appropriate for a patient of this age) are intolerable. The pain substantially limits activities of daily living. In particular, walking tolerance and ability to stair climb is reduced. Conservative management such as non-steroidal anti-inflammatory medications available by prescription, physician directed therapy, ice and/or heat and activity modification have been minimally effective or deemed insufficient by the patient for a period lasting greater than 3-6 months in duration. Assistive devices and external support were not deemed by the patient to be helpful in improving their function. The patient is unable to tolerate further physical therapy at this time. Review of systems is negative for rapidly progressive neurological disorder, chest pain, shortness of breath, fevers, chills, or any signs of active or persistent local or systemic infection. Physical Exam : Patient is well nourished, well-developed, in no acute distress, with appropriate mood and affect. The patient is oriented to time, place, and person. Respirations are even and unlabored. Gait evaluation reveals a limp. There is no inguinal adenopathy. Examination of the contralateral hip shows normal range of motion, strength, no tenderness, and intact skin. The affected limb is well-perfused, shows a grossly normal motor and sensory examination. Examination of the hip shows no skin lesions. Hip motion is reduced and causes pain. FADIR is positive and TIFFANIE is positive. Stinchfield test is positive. Leg lengths are approximately left less than right by 5 mm. Both hips are stable and muscle strength is normal. Pedal pulses are palpable. Assessment/Plan : The patient is an appropriate candidate for consideration of left total hip replacement. An extensive discussion was conducted of the natural history of the disease and the variety of surgical and non-surgical treatment options available to the patient. A risk/benefit analysis was discussed with the patient reviewing the advantages and disadvantages of surgical intervention at this time. A full explanation was given of the nature and the purpose of the procedure and anesthesia, its benefits, possible alternative methods of diagnosis or treatment, the risks involved, the possibility of complications, the foreseeable consequences of the procedure and the possible results of the non-treatment. No guarantee or assurance was made as to the results that may be obtained. Specifically, the risks were identified to include, but are not limited to the following: Infection, phlebitis, pulmonary embolism, , paralysis, dislocation, pain, stiffness, instability, limp, weakness, breakage, leg-length inequality, uncontrolled bleeding, nerve injury, blood vessel injury, pressure sores, anesthetic risks, delayed healing of wound and bone, and wear and loosening. Additional risks of robotic hip replacement were discussed (if used) including but not limited to pin site infection, draining, longer incision, longer OR time, and fracture near the pin sites. Further discussion was undertaken with the patient about the details of surgical preparation, treatment, and postoperative rehabilitation including medical clearance, autotransfusion, the hospital course, and the postoperative rehabilitation involved. As a part of routine preoperative counseling, if the patient is a smoker, the patient recognizes the increased risk of complications in patients who utilize tobacco products. The patient has also been counseled regarding the elevated risk of surgical complications in patients with an elevated BMI. The patient demonstrates understanding of the increased risk in such patients. The patient was encouraged to participate in physical activity and diet modification under the direction of their primary care physician. We will plan on proceeding with left total hip arthroplasty using the Dupont hip replacement system. However, it is possible during the preoperative planning process or due to intraoperative findings that a different implant system may be utilized in order to optimize the patient's outcome. We had a discussion regarding implant and bearing options. We had a detailed discussion of the advantages and limitations of the specific implant designs, materials and bearing surfaces. All questions were answered to the patient's satisfaction, and the patient was asked to call the office with any further concerns. All in all, I feel that this patient is a good candidate for surgical reconstruction. An in-depth discussion of the risks and benefits of surgery as noted above were had with patient, including any reasonable alternatives and the risks and benefits of the alternatives. The patient was given time to understand and ask questions, and the surgical consent was signed and dated today. If surgery is >1 month from today, this discussion will be repeated on the day of surgery, prior to anesthesia administration. The patient is also aware that questions can be asked at any time before the surgical date to me or my team. Plan for left total hip replacement at [facility]. Not available 11/25/2023 13:52:15 12/17/2023 12/17/2023 Patient opted fo r a telephone visit because it is clinically appropriate for the information reviewed and meets the patient's technological ability and equipment access. I confirmed patient identity verbally and they were advised about video/telephone delivery of care, HIPAA privacy and risk of communicating over appropriate video capable devices. The use of audio-only or video telecommunication technology is consistent with state and federal requirements. Patient stated understanding of the limitation of the treatment provided via audio/video and consents to this visit today. Patient stated they are comfortable that they are in a quiet and private location to speak freely about their health. The patient understands that today's visit will be submitted to the patient's insurance and may incur a co-pay or deductible. Patient is scheduled for left total hip arthroplasty at [facility]. They have significant joint pain, dysfunction and disability that impact many of their activities of daily living. They have failed to respond to alternate, conservative treatment measures. Physical Exam: Patient is located at their home. The patient's calculated BMI is 27.2. Patient is awake, alert and oriented to person, place and time. They are interacting appropriately with this examiner. They are asking and answering questions appropriately. Speech is clear and intelligible. The patient's communication skills do not indicate any significant neurologic dysfunction. After careful review of patient history and their individual risk factors for infection, they will not require additional antibiotic coverage after surgery. It has been determined that ASA is the appropriate medication for the prevention of DVT/PE. The patient wishes to be discharged home on the day of surgery. All questions were answered to the patients' satisfaction. More than twenty total minutes have been spent on this patient encounter plus a review of relevant imaging tests, medical history, medication lists, and medical clearance documents. This patient was seen and evaluated by Salty Salcedo MS, SUDHAKAR in indirect conjunction with [facility] provider Abraham Salinas MD. He agrees with history, physical examination, tests/diagnostic imaging, and treatment plan. Not available 12/17/2023 13:30:33 01/08/2024 01/08/2024 HPI : Patient is here for a 2 week follow-up from a left total hip replacement. She states she already feels better compared to preoperatively. She is walking with a cane just for safety. Her pain is come down significantly. She is just taking Tylenol. She is very happy with her progress so far. Physical Exam : Patient is well nourished, well- developed, in no acute distress, with appropriate mood and affect. The patient is AAOx3. The patient demonstrates good hip motion and strength. The incision is c/d/i . Assessment/Plan : The patient is functioning well 2 weeks from total hip arthroplasty. Continue anticoagulation therapy for 2 weeks. The patient will begin physical therapy. Return for follow-up in 1 month. Not available 01/08/2024 13:07:37 02/18/2024 02/18/2024 HPI : Patient is here for a 8 week follow-up from a left MANUELA. Patient denies fever, chest pain and shortness of breath. They have been doing physical therapy. She is thrilled with the results of her left-sided total hip arthroplasty. She reports that, I am so happy with this whole process. She reports that the hip is high functioning and pain-free. She has been doing physical therapy. She has been walking a mile a day with her dogs. Physical Exam : Patient is well nourished, well- developed, in no acute distress, with appropriate mood and affect. The patient demonstrates good hip motion and strength. The incision is well healing. Negative calf tenderness and Amy's sign. Distal checks are intact. Assessment/Plan : The patient is functioning well 6 weeks from total hip arthroplasty. Continue physical therapy as needed. Return for follow-up in 2 months with x-rays at that time; sooner with any problems. This patient was seen and evaluated by Salty Salcedo MS, SUDHAKAR in indirect conjunction with [facility] Abraham Salinas MD. He agrees with history, physical examination, tests/diagnostic imaging, and treatment plan. Not available 02/18/2024 10:51:40 04/21/2024 04/21/2024 HPI : Patient is here for 3 month(s) follow-up for left total hip replacement. Patient reports good pain relief in the hip and satisfactory buddhist of function in terms of activities of daily living. Their condition is improved relative to their pre-operative condition. She states that since the day after surgery I have had less pain than I did before. She is thrilled with the results of her left-sided total hip arthroplasty. She is back to a high level of comfort and function. I have no complaints. Physical Exam : Patient is well nourished, well-developed, in no acute distress, with appropriate mood and affect. The patient is oriented to time, place, and person. There is no inguinal adenopathy. The operative limb is well-perfused, with well healed skin incision. The patient demonstrates good hip motion, stability, and strength. There is no pain with ROM Muscle strength is normal. Distal NVMS checks are intact. X-Ray: Four view x-ray study of the postoperative hip obtained during today's office encounter does not show any signs of implant related issues including loosening, malposition, instability, periprosthetic fracture, periosteal reaction or infection. Assessment/Plan : This patient is functioning well after total hip arthroplasty. Continue to work on hip conditioning exercises. Vjbv-tnw-sptezmm medications as needed. The patient understands that ultimate failure may occur due to mechanical wear, loosening or breakage. Follow-up at one year post-op is recommended to assess for the possibility of failure. Follow up sooner with any problems. At least 25 minutes were spent reviewing previous charting and radiographs, obtaining history and physical exam, and reviewing treatment plan. This patient was seen and evaluated by Salty Salcedo MS, SUDHAKAR in indirect conjunction with documenting/supervi sing provider Abraham Salinas MD. He agrees with history, physical examination, tests/diagnostic imaging, and treatment plan. Not available 04/21/2024 09:59:17 Plan of Treatment Reminders Order Date Submit Date Provider Last Modified By Organization Details Last Modified Time Details Appointments FOLLOW UP 2024 10:15A M SALTY SALCEDO PA-C Not available Not available Not available Lab None recorded. Referral None recorded. Procedures None recorded. Surgeries total hip arthropla sty (SURG) 2023 024 [facility], [address] [place], [address], 12/23/2023 10:12:48 Imaging XR, hip, unilatera l, 2 or 3 view 2023 024 [email or web address] [facility], [address], [place], [address], 04/21/2024 09:59:52 XR, hip, unilatera l, 2 or 3 view 2023 024 [email or web address] [facility], [address], [place], [address], 11/25/2023 14:37:37 Medication Orders None recorded. Patient TargetsNo targets recorded. Patient InstructionsNo instructions recorded. Reason for Referral None Reported. Problems Name Problem SNOMED Code Status Onset Date Resolution Date Notes Provider Name and Address Organization Details Recorded Time Osteoarthri tis of left hip joint 0833686258089 08 Active 2023 Abraham Salinas MD [address] [facility],[address], [place], [address], [place] [facility], P 4 13:48:54 Arthritis of hip 25052665 Active 2023 Abraham Salinas MD [address] [facility],[address], [place], [address], [place] - [facility], P 4 13:49:34 Surgical follow-up 428515107 Active 2023 Abraham Salinas MD [address] [facility] [address], [place], [address], [place] - [facility], P 4 13:07:07 History of repair of hip joint 541221401 Active 2023 SALTY SALCEDO PA-C [address] [facility],[address], [place], [place], [address], [place] - [facility], P 4 10:53:22 Problem Notes None recorded. Procedures Surgical History Date Name Laterality Status Provider Name and Address Organization Details Recorded Time 12/22/19 TOTAL HIP ARTHROPLASTY (SURG) completed Deirdre Jamil [place] - [facility], P 12/23/2023 10:12:56 cholecystectomy completed Judie Bosch [place] - [facility], [facility] 11/25/2023 13:17:36 Imaging Results None recorded. Procedure Notes None recorded. Medical Equipment None Reported. Allergies No known drug allergies Medications Name Sig Start Date Stop Date Status Note LastModified by Organization Details LastModified Time meloxicam 15 mg tablet TAKE ONE TABLET DAILY FOR 15 DAYS. 02/17 completed Not Available Not Available Not Available aspirin 81 mg tablet,harriet yed release TAKE 1 TABLET BY MOUTH TWICE A DAY FOR 28 DAYS active Not Available Not Available No t Available ondansetron 8 mg disintegrat ing tablet TAKE 1 TABLET DISSOLVED UNDER THE TONGUE EVERY 8 HOURS NEEDED FOR NAUSEA. 02/17 completed Not Available Not Available Not Available methocarbam ol 750 mg tablet TAKE 1 TABLET BY MOUTH EVERY 6 HOURS NEEDED active Not Available Not Available No t Available pantoprazol e 40 mg tablet,harriet yed release TAKE 1 TABLET EVERY DAY BY ORAL ROUTE NEEDED. FOR 28 DAYS. 02/17 completed Not Available Not Available Not Available oxycodone 5 mg tablet TAKE 1-2 TABLETS BY MOUTH EVERY 4 HOURS NEEDED FOR PAIN (MAX 12/DAY) 02/17 completed Not Available Not Available Not Available Pain Relief Extra Strength (acetaminop hen) 500 mg tablet TAKE 2 TABLETS EVERY 8 HOURS BY ORAL ROUTE FOR 28 DAYS. active Not Available Not Available No t Available Senexon-S 8.6 mg-50 mg tablet TAKE 1 TABLET BY MOUTH TWICE A DAY active Not Available Not Available No t Available tranexamic acid 650 mg tablet TAKE 3 TABLETS IN THE MORNING FOR 3 DAYS START ON THE FIRST DAY AFTER YOUR SURGERY. 02/17 completed Not Available Not Available Not Available Vitals Date Recorded Body height Body mass index (BMI) Body weight Provider Name and Address Organization Details Last Updated DateTime 11/25/2023 172.72 cm 28.6 kg/m2 96922.37 g [place] [facility] 11/25/2023 13:16:22 Date Recorded Body height Provider Name an d Address Organization Details Last Updated DateTime 01/08/2024 172.72 cm [facility], P 01/08/2024 12:55:36 Social History None recorded. Functional Status None recorded. Mental Status None recorded. Family History Relationship Description Onset Age of this Age Resolved Age Notes LastModified by Organization Details LastModified Time Brother History of cancer of unknown primary site [email or web address] Not available 13:17:00 Father History of cancer of unknown primary site [email or web address] Not available 13:17:00 Mother History of cancer of unknown primary site [email or web address] Not available 13:17:00 Mother Arthritis Not availab le 11/25/2023 13:17:14 Mother Heart disease [email or web address] Not available 2023 13:17:28 Sister History of cancer of unknown primary site [email or web address] Not available 13:17:00 Sister Arthritis Not availab le 11/25/2023 13:17:14 Medical History Condition Response Coronary Artery Disease N Gout N Hyperthyroidism N MRSA N Blood Transfusion N Emphysema N Hypothyroidism N COPD N Depression N Pacemaker N Vascular Disease N Gastrointestinal Disease N Anxiety Disorder N Autoimmune disease N Arthritis N Cancer N Stroke N High Cholesterol N Neurologic Disorder N Liver Disease N Organ Transplant N Arrhythmia N Rheumatoid Arthritis N Fibromyalgia N Kidney Disease N Allergies/Hayfever N Adverse Reaction to Anesthesia N Thyroid Problems N Anemia N Brain Injury N Heart Attack ([place]) N Osteopenia N Diabetes N Bleeding Disorder N Seizures/Epilepsy N AIDS/HIV N Congestive Heart Failure (CHF) N Asthma N Amputation N Reflux/GERD N Sleep Apnea N Hepatitis N Aneurysm N Heart Disease N Pulmonary Embolism N Hypertension N Osteoporosis N Gynecological HistoryNo gynecological history recorded. Obstetrics History GPAL:G 0 P 0 0 0 0 Past Encounters Encounter ID Performer Location Encounter Start Date Encounter Closed Date Diagnosis/Indication Diagnosis SNOMED-CT Code Diagnosis ICD10 Code Diagnosis Note [id number] MD RACHEAL Tatum [facility] [address] [facility] [address] [place] [address] 11/25/2023 13:02:23 11/25/2023 13:59:31 Pain of left hip joint 3176523711 43479 M25.552 Osteoarthr itis of left hip joint 2135673142 74449 M16.12 Additional diagnosis detail: Primary osteoarthr itis of left hip Arthritis of hip 0157304 6 M13.859 [id number] SUDHAKAR COONEY [facility] [address] [address] 12/17/2023 12:14:49 12/17/2023 14:41:15 Osteoarthritis of left hip joint 8959351067 70338 M16.12 [id number] MD RACHEAL Tatum [facility] [address] [address] 01/08/2024 12:52:31 01/08/2024 13:09:08 Surgical follow-up 196691304 Z47.1 Z96.642 [id number] SUDHAKAR COONEY [employer] [address] [address] 02/18/2024 10:40:11 02/18/2024 10:54:48 History of repair of hip joint 274602969 Z96.642 [id number] SUDHAKAR COONEY [employer] [address] 04/21/2024 09:40:57 04/21/2024 09:58:59 History of repair of hip joint 768582229 Z96.642 Health Concerns Section Related Observation LastModified by Organization Detai ls LastModified Time None Recorded Concern Status LastModified by Organization Details LastModified Time None Recorded Advance Directives Directive None Recorded Payers Insurance Date Sequence Insurance Name Policy Number Policy Wills Covered Member ID Wills Member ID Guarantor Name 12/20/2023 1 [facility] (MEDICARE REPLACEMENT/A DVANTAGE - PPO) [id number] Sally Fernandez [id number] Sally Fernandez OBGyn Episode No OBEpisode recorded.
== END 2024-10-20 09:05 | disposition home or self-care (01) ==
LOC: HO.HOSX 09:04
PROVIDERS: Visit Provider Orthopaedic Surgery
DX: Z13.89 Encounter for screening for other disorder (principal)

== ENCOUNTER 2024-11-22 10:07 | Outpatient (REF) | payer MEDICARE, SELFPAY ==
--- NOTE | ~2024-11-22 | XR_ITS ---
EXAMINATION: XR HAND, RIGHT CLINICAL INFORMATION: M79.641 - Pain in right hand COMPARISON: None available. TECHNIQUE: PA, lateral, and oblique views of the right hand. FINDINGS: There is mild to moderate asymmetric narrowing of DIP and PIP joints with small marginal osteophytes. There are marginal ossified involving the second, third, and fifth metacarpophalangeal joints with mild to moderate narrowing of the second and third joints. There is nonunion of a remote ulnar styloid fracture. There is focal somewhat amorphous calcific density in the triangular fibrocartilage distal to the distal radioulnar joint. There is moderate narrowing of the scaphoid trapezoid joint. 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 Electronically signed by: David Landa MD 11/22/2024 02:40 PM EDT
== END 2024-11-22 10:08 | disposition home or self-care (01) ==
LOC: HO.HOSX 10:07
PROVIDERS: Visit Provider Orthopaedic Surgery
DX: S62.324A Displaced fracture of shaft of fourth metacarpal bone, right hand, initial encounter for closed fracture (principal); M79.641 Pain in right hand; Y93.K1 Activity, walking an animal; W19.XXXA Unspecified fall, initial encounter
CPT/HCPCS: 73130; 99212

== ENCOUNTER 2024-11-22 14:00 | Outpatient (AMB) | payer MEDICARE, SELFPAY ==
[2024-11-22 14:33] VITALS: BMI 30.6
--- NOTE | 2024-11-22 14:33 | A.OFFVIS_ITS ---
Vital Signs 11/22/24 14:33 Height 5 ft 9 in Weight 207 lb BMI 30.6 Intake Visit Reasons: OV - Right 4th MC fx 10/14/24 - w/ XR Intake Note: Sally 69 yr old female presents today for her follow up visit for her Right 4th metacarpal shaft fracture, spiral oblique minimally displaced from a fall walking her dog, DOI: 10/15/24. At her last visit she was advise to wear her velcro wrist brace as a cast. Currently states she continues to have pain and swelling. States she is not able to make a full close fist and is not sure if this is due to the injury or her osteoarthritis. Allergies codeine (Codeine) Allergy (Mild, Verified 11/22/24 14:38) VOMITING HPI HPI OV - Right 4th MC fx 10/14/24 - w/ XR: Details: Sally is a 69 year old right hand dominant woman who presents for her right 4th metacarpal fracture, S/P fall, DOi: 10/14/24. She has been treated in a Velcro wrist splint, and feels like her hand pain has improved. She does activities such as knitting in order to preserve her motion. [facility] Medical History Rectal lump Right hand pain Left hand pain Osteoarthritis involving multiple joints on both sides of body Lumbar pain Left hip pain Physical exam Overweight Surgical History History of left hip replacement History of tonsillectomy History of cholecystectomy Family History Mother Breast cancer Glaucoma Parkinson disease Heart failure Father Heart valve problem Parkinson disease Prostate cancer Family/Other Substance use disorder Brother Substance use disorder Cirrhosis Social History Housing: House Alcohol intake: never Patient Tobacco Use Status: Never used Tobacco e-Cigarette/Vaping Use: Never Used Second Hand Smoke Exposure: No Substance Use Type: Marijuana service: No Current occupational status: retired Cognitive needs: No Hearing needs: No Vision needs: Yes Review of Systems Const All systems reviewed & are unremarkable except as noted in HPI and below Physical Exam Vital Signs: BMI result Body Mass Index 30.6 Const General: no acute distress and alert Orientation/consciousness: patient oriented x3 Neuro General: patient oriented x3 Extrem Other: Evaluation of Right Upper Extremity: The patient is alert, oriented, and in no acute distress ROM: Initially she could bring her fingers ~1cm from her palm We worked on ROM exercises today in clinic, before leaving she could make a fist and extend all her digits No rotational mal-alignment Arthritic changes primarily to the 2nd & 3rd MCP joints Swelling and ecchymosis resolved Fracture site completely non-tender No other TTP about the hand & wrist Radiographs: 3 views of the right hand were taken and viewed by me today in clinic. They show a minimally displaced spiral oblique 4th metacarpal shaft fracture with satisfactory fracture alignment and some evidence of interval bony healing Psych Appearance: grossly normal Affect: normal affect Attitude: cooperative Assessment & Plan Assessment & Plan (1) Fracture of shaft of fourth metacarpal bone of right hand: Code(s): S62.324A - Displaced fracture of shaft of fourth metacarpal bone, right hand, initial encounter for closed fracture Category: Medical Plan Assessment & Plan: 1. Right 4th metacarpal shaft fracture, spiral oblique Minimally displaced From a fall walking her dog, DOI: 10/15/24 I educated her about this condition This has been managed conservatively She will continue to wear her velcro wrist splint when out of the house for heavier daily activity for the next 4 weeks. She will discontinue her splint at home and for light weight activities I discussed activity modifications, she is to begin to use her hand for lightweight activities and slowly increase as tolerated over the next 6 weeks. She is also to avoid any heavy impact activities or falls. She will perform ROM exercises at home, out of her splint She can follow up PRN Scribed for Nguyen Lerma MD by [facility] [place], medical customer service representative, on 11/22/24 at 2:50 PM, EST. Orders: Orders XR hand RT min 3V Today M79.641 - Pain in right hand Coding Level of Care Code Global (90878) Diagnoses Fracture of shaft of fourth metacarpal bone of right hand S62.324A
--- OUTSIDE RECORDS SUMMARY | 2024-11-22 15:19 | XMS_ITS ---
Author Name [facility] Organization Unknown History of Medication Use Medication Directions Dispensed Refills Start Date End Date Stat Enteric Coated Aspirin 81 mg tablet,delayed release Take 1 tablet twice a day by oral route for 28 days. 12/17/2023 active methocarbamol 750 mg tablet Take 1 tablet every 6 hours by oral route as needed. 12/17/2023 active Problems Problem Status Onset Date Problem Type Date of Resoluti on Source History of repair of hip joint active 2024-02-18 ProblemAct [facility] Arthritis of hip active 2023-11-25 ProblemAct [facility] Surgical follow-up active 2024-01-08 ProblemAct [facility] Osteoarthritis of left hip joint active 2023-11-25 ProblemAct [facility] Encounters Encounter Type Encounter Reason Primary Diagnosis Location Date Ambulatory [facility] [place] 02/18/2024 Ambulatory [facility] [place] 01/07/2024 Ambulatory ROUTINE Unilateral prima ry osteoarthritis, left hip [facility] 12/22/2023 Ambulatory [facility] [place] 11/26/2023 Ambulatory [facility] [place] 11/26/2023 Ambulatory [facility] [place] 11/25/2023 Ambulatory [facility] [place] 11/25/2023 Ambulatory [facility] [place] 11/25/2023 Ambulatory [facility] [place] 11/25/2023 Ambulatory [facility] [place] 11/25/2023 Ambulatory [facility] [place] 11/19/2023 Ambulatory [facility] [place] 11/19/2023 Ambulatory [facility] [place] 10/29/2023 Ambulatory [facility] [place] 09/30/2023 Care Team Organization Name Specialty Phone Email Start Date End Da te [facility] [place] 2023 [facility] [place] 2023
--- OUTSIDE RECORDS SUMMARY | 2024-11-22 15:19 | XMS_ITS | Data Portability ---
Author Organization [place] [facility] Castellanos [place] [place] Address [address] [place] [address] Care Team Providers Care Atg Java Developer Name Role Phone ERICK LYNNE Primary Care Provider [phone] Assessment Encounter Date Assessment Date Assessment LastModified [...] with left total hip arthroplasty using the [place] hip replacement system. However, it is possible [...] Plan for left total hip replacement at [facility]. Not available 11/25/2023 13:52:15 12/17/2023 12/17/2023 Patient [...] scheduled for left total hip arthroplasty at [facility]. They have significant joint pain, dysfunction and [...] Salcedo MS, SUDHAKAR in indirect conjunction with [facility] provider Abraham Salinas MD. He agrees [...] Salcedo MS, SUDHAKAR in indirect conjunction with [facility] provider Abraham Salinas MD. He agrees with history, physical examination, tests/diagnostic imaging, and treatment plan. Not available 02/18/2024 10:51:40 04/21/2024 04/21/2024 HPI : Patient is here for 3 month(s) follow-up for left total hip replacement. Patient reports good pain relief in the hip and satisfactory gnosticism of function in terms of activities of [...] Continue to work on hip conditioning exercises. [id number] medications as needed. The patient understands that [...] total hip arthropla sty (SURG) 2023 024 [facility], [address] [place], [address], 12/23/2023 10:12:48 Imaging XR, hip, unilatera l, 2 or 3 view 2023 024 [email or web address] [facility], [address], [address], [place], [address], 04/21/2024 09:59:52 XR, hip, unilatera l, 2 or 3 view 2023 024 [email or web address] [facility] [place] [facility], [address], [place], [address], 11/25/2023 14:37:37 Medication Orders None recorded. Patient TargetsNo targets recorded. Patient InstructionsNo instructions recorded. Reason for Referral None Reported. Problems Name Problem SNOMED Code Status Onset Date Resolution Date Notes Provider Name and Address Organization Details Recorded Time Osteoarthri tis of left hip joint 9885178953657 08 Active 2023 Abraham Salinas MD [address] [facility], [place], [address], [place] - [facility] [place], P 13:48:54 Arthritis of hip 50494759 Active 2023 Abraham Salinas MD [address] [facility],[address], [place], [address], [place] - [facility] [place], P 4 13:49:34 Surgical follow-up 377866020 Active 2023 Abraham Salinas MD [address] [facility] [address], [place], [place], [address], [place] - [facility] [place], P 4 13:07:07 History of repair of hip joint 197867936 Active 2023 SALTY SALCEDO PA-C [address] [facility] [address], [place], [place], [address], [place] - [facility] [place], P 4 10:53:22 Problem Notes None recorded. Procedures Surgical History Date Name Laterality Status Provider Name and Address Organization Details Recorded Time 12/22/19 TOTAL HIP ARTHROPLASTY (SURG) completed Deirdre Jamil [place] - [facility] [place], P 12/23/2023 10:12:56 cholecystectomy completed Jud[facility] Bos[facility] 11/25/2023 13:17:36 Imaging Results None recorded. [...] Updated DateTime 11/25/2023 172.72 cm 28.6 kg/m2 03828.37 g [facility] - [facility] [place], P 11/25/2023 13:16:22 Date Recorded Body height Provider Name an d Address Organization Details Last Updated DateTime 01/08/2024 172.72 cm [facility], [facility] 01/08/2024 12:55:36 Social History None recorded. [...] Anemia N Brain Injury N Heart Attack (IA) N Osteopenia N Diabetes N Bleeding Disorder [...] SNOMED-CT Code Diagnosis ICD10 Code Diagnosis Note [id number] MD [facility] [address] [address] 11/25/2023 13:02:23 11/25/2023 13:59:31 Pain of left hip joint 7746248331 28160 M25.552 Osteoarthr itis of left hip joint 9627481659 92558 M16.12 Additional diagnosis detail: Primary osteoarthr itis of left hip Arthritis of hip 4860119 6 M13.859 [id number] SUDHAKAR COONEY [employer] [facility] [address] [address] 12/17/2023 12:14:49 12/17/2023 14:41:15 Osteoarthritis of left hip joint 1073018890 92081 M16.12 [id number] MD RACHEAL Tatum [employer] [address] [address] 01/08/2024 12:52:31 01/08/2024 13:09:08 Surgical follow-up 851216260 Z47.1 Z96.642 [id number] [address] 02/18/2024 10:40:11 02/18/2024 10:54:48 History of repair of hip joint 028304249 Z96.642 [id number] [address] 04/21/2024 09:40:57 04/21/2024 09:58:59 History of repair of hip joint 451248732 Z96.642 Health Concerns Section Related Observation LastModified by Organization Detai ls LastModified Time None Recorded Concern Status LastModified by Organization Details LastModified Time None Recorded Advance Directives Directive None Recorded Payers Insurance Date Sequence Insurance Name Policy Number Policy Wills Covered Member ID Wills Member ID Guarantor Name 12/20/2023 1 [facility] (MEDICARE REPLACEMENT/A DVANTAGE - PPO) [id number] Sally Fernandez [id number] Sally Fernandez OBGyn Episode No OBEpisode recorded.
== END 2024-11-22 14:56 | disposition home or self-care (01) ==
LOC: HO.HOS 14:00
PROVIDERS: PCP Internal Medicine; Visit Provider Orthopaedic Surgery
DX: S62.324A Displaced fracture of shaft of fourth metacarpal bone, right hand, initial encounter for closed fracture (principal)
CPT/HCPCS: 99024

== ENCOUNTER → 2024-11-22 14:09 | Outpatient (BNV) | payer MEDICARE, SELFPAY | PROVIDERS: Visit Provider Radiology Diagnostic Radiology | DX: M19.041 Primary osteoarthritis, right hand (principal) | CPT/HCPCS: 73130 ==

== ENCOUNTER 2024-12-27 13:06 | Outpatient (REF) | payer MEDICARE, SELFPAY | END 2024-12-27 13:07 | disposition home or self-care (01) | LOC: HO.MAMMO 13:06 | PROVIDERS: PCP Internal Medicine; Visit Provider Internal Medicine | DX: Z12.31 Encounter for screening mammogram for malignant neoplasm of breast (principal) | CPT/HCPCS: 77063; 77067 ==

== ENCOUNTER → 2024-12-27 13:30 | Outpatient (BNV) | payer MEDICARE, SELFPAY | PROVIDERS: PCP Internal Medicine; Visit Provider Radiology Body Imaging | DX: Z12.31 Encounter for screening mammogram for malignant neoplasm of breast (principal) | CPT/HCPCS: 77063; 77067 ==

== ENCOUNTER 2025-03-08 12:33 | Outpatient (AMB) | payer MEDICARE, SELFPAY ==
[2025-03-08 12:36] VITALS: BP 180/90; PULSE 81; RESP 18; TEMP 36.2; O2SAT 96; BMI 30.6
--- NOTE | 2025-03-08 12:36 | A.OFFPC_ITS ---
Vital Signs 03/08/25 12:36 03/08/25 13:18 Height 5 ft 9 in Weight 207 lb 6 oz BMI 30.6 BP 180/90 H 130/80 Blood Pressure Location Lt brachial Lt brachial Position Sitting Sitting Respiration 18 Pulse 81 Pulse Source Pulse Oximeter Temp 97.1 F Temp Source Temporal Artery Scan Pulse Oximetry (%) 96 Oxygen Delivery Method Room Air Intake Visit Reasons: Annual Exam Employment Programs Analyst Required: No Accompanied by: Self / Same As Patient Allergies codeine (Codeine) Allergy (Mild, Verified 03/08/25 12:52) VOMITING Medication List - Last Reconciled 03/08/25 by Suellen Loomis MD acetaminophen (Pain Relief Extra Strength (acetaminophen)) 1,000 mg PO Q8H aspirin 81 mg PO DAILY calcium carbonate 500 mg PO BID multivitamin 1 tab PO DAILY Tobacco use date assessed: 03/08/25 Fall risk assessment: No Falls in past year Last assessed Fall Risk: 03/08/25 Dental Screening Dental Screen Date: 03/08/25 Did you have a dental visit in the last 12 months?: Yes Did you have a dental problem in the last 6 months where you did not have access to dental care?: No Was dental information given to patient?: Patient has dentist HPI HPI Comments History of Present Illness Details The patient is a 69-year-old female presenting for an annual physical examination. She expresses a desire to monitor her blood sugar, as she feels she is on the edge of developing diabetes, and notes recent weight gain due to inactivity while caring for her . Her surgical history is notable for a left total hip replacement last year via an anterior approach, from which she had a good recovery. She also has a history of a cholecystectomy and a tonsillectomy many years ago. She reports a past hand issue, which was thought to be a hairline fracture associated with significant swelling. Regarding health maintenance, the patient has had a recent mammogram and her last colonoscopy was in 2016, with the next one due in 2026. She is due for a tetanus vaccine, with the last one administered in 2010. The status of her last bone density test is uncertain, though she believes she had one at [place] or [place], and records are being sought. The patient's mother at 93 with heart failure and had a history of breast cancer. Her father had Parkinson's disease and prostate cancer. Her brother at age 63. The patient reports an allergy to codeine, which causes vomiting. She takes baby aspirin and multivitamins as needed but does not typically use Tylenol. She does not smoke and does not drink alcohol. [facility] Medical History Rectal lump Right hand pain Left hand pain Osteoarthritis involving multiple joints on both sides of body Lumbar pain Left hip pain Physical exam Overweight Surgical History History of left hip replacement History of tonsillectomy History of cholecystectomy Family History (Updated 03/08/25 @ 13:02 by Suellen Loomis MD) Mother Breast cancer Glaucoma Heart failure Father Heart valve problem Parkinson disease Prostate cancer Family/Other Substance use disorder Brother Substance use disorder Cirrhosis Social History Housing: House Alcohol intake: never Patient Tobacco Use Status: Never used Tobacco e-Cigarette/Vaping Use: Never Used Second Hand Smoke Exposure: No Substance Use Type: Marijuana service: No Current occupational status: retired Cognitive needs: No Hearing needs: No Vision needs: Yes Questionnaire PHQ-9 Over the last 2 weeks, how often have you been bothered by any of the following problems? 1. Little interest or pleasure in doing things: not at all 2. Feeling down, depressed, or hopeless: not at all 3. Trouble falling or staying asleep, or sleeping too much: not at all 4. Feeling tired or having little energy: not at all 5. Poor appetite or overeating: not at all 6. Feeling bad about yourself - or that you are a failure or have let yourself or your family down: not at all 7. Trouble concentrating on things, such as reading the newspaper or watching television: not at all 8. Moving or speaking so slowly that other people could have noticed. Or the opposite - being so fidgety or restless that you have been moving around a lot more than usual: not at all 9. Thoughts that you would be better off or of hurting yourself in some way: not at all Total score: 0 Depression Screening Interpretation: Negative Depression Screening Done: Yes 51042 - PHQ-9 Billing: Yes Source: Developed by Drs. Jer Slaughter, Melissa Mueller, Ash Nelson and colleagues, with an educational penny from [employer]. Thrive Questionnaire Date Thrive assessed: 03/08/25 I am a: Patient What is your living situation today?: I have a steady place to live Within the past 12 months, did the food you bought not last and you didn't have the money to get more?: Never true Within the past 12 months, did you worry whether your food would run out before you got money to buy more?: Never true Do you have trouble paying for medicines?: No Do you have trouble getting transportation to medical appointments?: No Do you have trouble paying your heating and electricity bill?: No Do you have trouble taking care of your child, family member or friend?: No Do you have trouble with day-to-day activities such as bathing, preparing meals, shopping, managing finances, etc.?: No Are you currently unemployed and looking for a job?: No Are you interested in more education?: No Please select the resources that you would like help with: None Currently or been in a relationship where the following occur: No concerns reported THRIVE Score: 0 AUDIT C Alcohol Use Questionnaire (AUDIT-C) 1. How often do you have a drink containing alcohol?: Never Total Score: 0 Score Reviewed/Action Taken: No ABEL-7 AMB Questionnaire ABEL-7 Date ABEL - 7 assessed: 03/08/25 Feeling nervous, anxious, or on edge: 1 = Several days Not being able to stop or control worryin = Not at all Worrying too much about different things: 0 = Not at all Trouble relaxin = Not at all Being so restless that it is hard to sit still: 0 = Not at all Becoming easily annoyed or irritable: 0 = Not at all Feeling afraid as if something awful might happen: 0 = Not at all Total ABEL-7 score (0-4 normal; 5-9 mild; 10-14 moderate; 15-21 severe): 1 Source: Developed by Melissa Vickers, Ash Nelson and colleagues, with an educational penny from [employer]. ABEL-7 Assessment Billing ABEL-7 Assessment Tool: ABEL-7 Assessment 16881 Review of Systems Const All systems reviewed & are unremarkable except as noted in HPI and below Card Denies chest pain at rest, Denies chest pain with activity, Denies edema, Denies irregular heart rhythm, Denies claudication, Denies dyspnea, Denies dyspnea on exertion, Denies orthopnea, Denies paroxysmal nocturnal dyspnea and Denies slow heart rate Resp Denies cough, Denies dyspnea and Denies dyspnea on exertion Neuro Denies lack of coordination Physical exam (Primary Care) Vital Signs: Last Vital Signs Temp 97.1 F 03/08/25 12:36 Pulse 81 03/08/25 12:36 Resp 18 03/08/25 12:36 BP 130/80 03/08/25 13:18 Pulse Ox 96 03/08/25 12:36 Oxygen Delivery Method Room Air 03/08/25 12:36 BMI result Body Mass Index 30.6 BMI Assessment/Plan discussion: High BMI High, discussed plan: lifestyle, weight reduction, dietary and physical activity Tobacco/Smoking Status: Tobacco use Status Tobacco use date assessed 03/08/25 03/08/25 12:50 Patient Tobacco Use Status Never used Tobacco 03/08/25 12:50 e-Cigarette/Vaping Use Never Used 03/08/25 12:50 PHQ-9: PHQ-9 Score PHQ-9: Total score 0 03/08/25 13:34 Depression Screening Interpretation: Negative Thrive Assessment: Date of Thrive Assessment Date Thrive assessed 03/08/25 03/08/25 12:50 Currently or been in a relationship where the following occur: No concerns reported [facility] Head: Yes normal to inspection, Yes normocephalic and Yes atraumatic Ears: external ears normal Eyes General: appearance normal, both eyes and all related structures Eyelids: Yes eyelids normal Conjunctivae: conjunctivae normal Neck Neck: Yes normal visual inspection and Yes supple Resp Effort & Inspection: normal respiratory effort Auscultation: clear to auscultation bilaterally Cardio Jugular venous distension: no JVD Rate: regular rate Rhythm: regular rhythm Heart sounds: S1 normal heart sound present and S2 normal heart sound present GI Inspection: Yes normal to inspection Palpation (GI): Soft to palpation and nontender Auscultation: normal bowel sounds Skin General skin exam: no rashes or lesions noted Neuro General: no focal motor deficits Extrem General: Yes full ROM Psych Appearance: grossly normal Immunizations Tenivac (PF) 5 Lf unit-2 Lf unit/0.5 mL intramuscular syringe Performing Provider: Suellen Loomis MD [facility] Administered by: MEDHAT Walls on 03/08/25 13:35 Dose Route Admin Location Dispensed Lot Number Expiration Date NDC 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 Cleaning 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 Clerk 0.5 mL IM Left Deltoid 0.5 mL [id number] 08/02/26 49370-226-23 [employer] Total Dispensed Waste 0.5 mL 0 % VIS Given Date VIS Provided VIS Publication Date 03/08/25 Single Vaccine 20 Eligibility Eligibility Date Funding Source Not [place] Eligible 03/08/25 Private Coding Level of Care Code Est Pt Prev Care >65y(36287) Diagnoses Physical exam Z00.00 Additional Codes ABEL-7 Assessment Billing - ABEL-7 Assessment Tool: ABEL-7 Assessment 88912 ([id number]) PHQ-9 - 00299 - PHQ-9 Billing: Yes ([id number]) Time Spent (min) 38 Assessment & Plan Assessment & Plan (1) Physical exam: Code(s): Z00.00 - Encounter for general adult medical examination without abnormal findings Category: Medical Plan Plan 1. Annual Health Examination The patient presents for a routine annual physical examination. A review of health maintenance indicates she is overdue for a tetanus vaccination, which was last administered in 2010. Her colonoscopy is up to date, with the next screening due in 2026. The status of her bone density screening is unclear, and an attempt will be made to retrieve records from [place]. A tetanus vaccine will be administered today. Fasting labs will be ordered to assess blood sugar, lipids, and kidney and liver function. 2. Prediabetes And Overweight The patient is concerned about her blood sugar, feeling she is prediabetic, and has experienced recent weight gain due to inactivity while caregiving. She has tried low-carb diets but finds them difficult to sustain due to fatigue and irritability. A continuous glucose monitor is not clinically indicated or covered by insurance without a diagnosis of diabetes requiring insulin. The patient was advised she can purchase a standard glucometer or urine test strips over the counter for intermittent self-monitoring. Plan includes encouraging her to resume walking, moderation of carbohydrate intake rather than complete elimination, increasing protein, and maintaining dietary consistency. Fasting labs are ordered for formal assessment. 3. Elevated Blood Pressure Reading The patient's initial blood pressure was elevated, which is not typical for her. Upon rechecking under proper conditions, the reading was 130/80 mmHg. The patient is advised to monitor her blood pressure. No medication is indicated at this time. Orders: Orders Comprehensive [place]. Panel Fast Today Z00.00 - Encounter for general adult medical examination without abnormal findings Lipid Panel Today E78.5 - Hyperlipidemia, unspecified Td Immunization Today Z23 - Encounter for immunization
[2025-03-08 13:18] VITALS: BP 130/80
--- OUTSIDE RECORDS SUMMARY | 2025-03-08 15:11 | XMS_ITS | Data Portability ---
Author Organization [place] [facility] Castell[facility] [place] Address [address] [place] [address] Care Team Providers Care Water Use Inspector Name Role Phone ERICK LYNNE Primary Care Provider Assessment Encounter Date Assessment Date Assessment LastModified by Organization Details LastModified Time 12/17/2023 12/17/2023 Patient opted fo r a [...] scheduled for left total hip arthroplasty at [facility]. They have significant joint pain, dysfunction [...] patient was seen and evaluated by Salty May MS, SUDHAKAR in indirect conjunction with [facility] provider Abraham Salinas MD. He agrees [...] patient was seen and evaluated by Salty May MS, PA-C in indirect conjunction with documenting/supervi [facility] provider Abraham Salinas MD. He agrees with history, physical examination, tests/diagnostic imaging, and treatment plan. Not available 02/18/2024 10:51:40 04/21/2024 04/21/2024 HPI : Patient is here for 3 month(s) follow-up for left total hip replacement. Mitchell johns reports good pain relief in the hip and satisfactory restorationism of function in terms of activities of [...] Continue to work on hip conditioning exercises. Midt-mnr-oofjbdd medications as needed. The patient understands that [...] patient was seen and evaluated by Salty May MS, PA-C in indirect conjunction with documenting/supervi sing provider Abraham Salinas MD. He agrees with history, physical examination, tests/diagnostic imaging, and treatment plan. Not available 04/21/2024 09:59:17 12/22/2024 12/22/2024 HPI : Patient is here for 1 year follow-up for left total hip replacement. Mitchell johns reports good pain relief in the hip and satisfactory restorationism of function in terms of activities of daily living. Their condition is improved relative to their pre-operative condition. She is thrilled with the long-term results of her left-sided total hip arthroplasty. She reports marked improvement even since the day of her surgery. Since then she has become completely pain-free and asymptomatic. She is back to a high level of comfort and function. Physical Exam : Patient is well nourished, [...] Continue to work on hip conditioning exercises. Aowm-jor-bzexzcd medications as needed. The patient understands that [...] patient was seen and evaluated by Salty May MS, PA-C in indirect conjunction with documenting/supervi sing provider Abraham Salinas MD. He agrees with history, physical examination, tests/diagnostic imaging, and treatment plan. Not available 12/22/2024 10:40:35 Plan of Treatment Reminders Order Date Submit Date Provider Last Modified By Organization Details Last Modified Time Details Appointments None record ed. Lab None record ed. Referral None record ed. Procedures None record ed. Surgeries None record ed. Imaging XR, hip, unilat eral, 2 or 3 view 025 12/23/19 25 [facility], [address], [place], [address], 5 11:47:59 XR, hip, unilat eral, 2 or 3 view 024 04/21/20 24 [facility], [address], [place], [address], 4 09:59:52 Medication Orders None record ed. Patient TargetsNo targets recorded. Patient InstructionsNo instructions recorded. Reason for Referral None Reported. Problems Name Problem SNOMED Code Status Onset Date Resolution Date Notes Provider Name and Address Organization Details Recorded Time Osteoarthri tis of left hip joint [id number] 08 Active 2023 Abraham Salinas MD [address], [place], [place], [address], [place] [facility] 4 13:48:54 Arthritis of hip 25212026 Active 2023 Abraham Salinas MD [address], [place], [address], [place] [facility], P 4 13:49:34 Surgical follow-up 115007596 Active 2023 Abraham Salinas MD [address], [place], [address], [place] [facility], P 4 13:07:07 History of repair of hip joint 527296217 Active 2023 SALTY MAY PA-C [address], [place], [address], [place] [facility], P 4 10:53:22 Problem Notes None recorded. Procedures Surgical History Date Name Laterality Status Provider Name and Address Organization Details Recorded Time 12/22/19 24 TOTAL HIP ARTHROPLASTY (SURG) completed Deirdre Jamil [facility] - [facility] 12/23/2023 10:12:56 cholecystectomy completed Judie Bosch [facility] 11/25/2023 13:17:36 Imaging Results None recorded. [...] Not Available Vitals Date Recorded Body height Provider Name an d Address Organization Details Last Updated DateTime 12/22/2024 172[address] [place] [facility] 12/22/2024 10:20:39 Date Recorded Body height Provider Name an d Address Organization Details Last Updated DateTime 01/08/2024 172[address] [place] [facility] 01/08/2024 12:55:36 Social History None recorded. [...] MRSA N Blood Transfusion N Emphysema N Depression N COPD N Hypothyroidism N Pacemaker N Vascular Disease N Gastrointestinal Disease N Anxiety Disorder N Autoimmune disease N Arthritis N Cancer N Stroke N High Cholesterol N Neurologic Disorder N Liver Disease N Organ Transplant N Rheumatoid Arthritis N Arrhythmia N Fibromyalgia N Kidney Disease N Allergies/Hayfever N Adverse Reaction to Anesthesia N Thyroid Problems N Anemia N Brain Injury N Heart Attack ([place]) N Osteopenia N Diabetes N Bleeding Disorder [...] Diagnosis SNOMED-CT Code Diagnosis ICD10 Code Diagnosis IMO Codes Diagnosis Note [id number] MD RACHEAL Tatummalika [address] [facility] [address] [place] [address] 11/25/2023 13:02:23 11/25/2023 13:59:31 Pain of left hip joint [id number] 70407 M25.552 Osteoarthr itis of left hip joint 0487630081 15167 M16.12 Additional diagnosis detail: Primary osteoarthr itis of left hip Arthritis of hip 4487705 6 M13.859 [id number] [facility] [address] [place] [address] 12/17/2023 12:14:49 12/17/2023 14:41:15 Osteoarthritis of left hip joint 5631486052 26039 M16.12 [id number] MD KURT TatumHANH Maciel [address] [place] [address] 01/08/2024 12:52:31 01/08/2024 13:09:08 Surgical follow-up [id number] Z47.1 Z96.642 [id number] SUDHAKAR COONEY Janell [address] [place] [address] 02/18/2024 10:40:11 02/18/2024 10:54:48 History of repair of hip joint 879647269 Z96.208 [id number] SUDHAKAR COONEYHANH Perezmalika [address] [place] [address] 04/21/2024 09:40:57 04/21/2024 09:58:59 History of repair of hip joint 192354262 Z96.368 [id number] SUDHAKAR COONEYHANH Perezmalika [address] [place] [address] 12/22/2024 10:11:52 12/22/2024 10:35:47 History of repair of hip joint 375442277 Z96.642 [id number] Health Concerns Section Related Observation LastModified by Organization Detai ls LastModified Time None Recorded Concern Status LastModified by Organization Details LastModified Time None Recorded Advance Directives Directive None Recorded Payers Insurance Date Sequence Insurance Name Policy Number Policy Wills Covered Member ID Wills Member ID Guarantor Name 12/20/2023 1 [facility] (MEDICARE REPLACEMENT/A DVANTAGE - PPO) [id number] Sally Fernandez [id number] Sally Fernandez OBGyn Episode No OBEpisode recorded.
== END 2025-03-08 13:41 | disposition home or self-care (01) ==
LOC: HO.HMCH 12:34
PROVIDERS: PCP Internal Medicine; Visit Provider Internal Medicine
DX: Z23 Encounter for immunization (principal); Z00.00 Encounter for general adult medical examination without abnormal findings

== ENCOUNTER → 2025-03-08 12:33 | Outpatient (BNVA) | payer MEDICARE, SELFPAY | PROVIDERS: PCP Internal Medicine; Visit Provider Internal Medicine | DX: Z00.00 Encounter for general adult medical examination without abnormal findings (principal); Z13.31 Encounter for screening for depression; Z13.39 Encounter for screening examination for other mental health and behavioral disorders; Z23 Encounter for immunization; R73.03 Prediabetes; E66.3 Overweight | CPT/HCPCS: 90471; 90714; 96127; 99397 ==